=== PATIENT | female | born 2000 | race Caucasian/White ===

== ENCOUNTER 2022-10-20 10:33 | Outpatient (CLI) | payer OTHER, MEDICAID, SELFPAY ==
--- NOTE | 2022-10-20 10:47 | US_ITS ---
WS: [id number] ULTRASOUND OB COMPLETE TECHNIQUE: ultrasound. CLINICAL INFORMATION: UNSURE OF LMP COMPARISON: None. FINDINGS: Single interuterine gestation is identified with vertex presentation. Placenta is fundal. Placenta grade 0. Normal amniotic fluid volume. cardiac activity: 164 BPM. AGA: 18w3d NILTON by ultrasound: 03/20/2023 Estimated weight: 254 g; 0 lbs. 9 oz. BDP: 4.0 cm = 18w1d HC: 16.1 cm = 18w6d AC: 13.2 cm = 18w5d FEMUR LENGTH: 2.9 cm = 18w5d US/US OB >= 14 weeks fetus [id number] IMPRESSION: 1. Single intrauterine with visualized cardiac activity. AGA 18w3d w ith NILTON 03/20/2023. 2. Placenta is fundal. No evidence of abruption or previa. 3. Normal amniotic fluid volume.
== END 2022-10-20 10:34 | disposition home or self-care (01) ==
LOC: RAD 10:42
PROVIDERS: PCP Nurse Practitioner; Visit Provider Family Medicine
DX: Z36.87 Encounter for antenatal screening for uncertain dates (principal); Z3A.18 18 weeks gestation of pregnancy
CPT/HCPCS: 76805

== ENCOUNTER 2023-03-02 14:13 | Outpatient (CLI) | payer OTHER, MEDICAID, SELFPAY ==
[2023-03-02] VITALS (12 sets, daily range): BP systolic 106–141; BP diastolic 60–90; PULSE 65–92; TEMP 36.1; BMI 38.9
[2023-03-02 15:34] LABS: Add Urine Microscopic? NO; Charge for UA Resulting for Rev
[2023-03-02 15:42] LABS: Bilirubin Urine Neg (Negative); Blood Urine Neg (Negative); Glucose Urine UA Norm (Normal); Ketones Urine Negative (Negative); Leukocyte Esterase Urine Negative (Negative); Nitrate Urine Negative (Negative); Protein Urine Neg (Negative); Urine Appearance Clear (CLEAR); Urine Color Yellow (Yellow); Urobilinogen Urine Norm (Negative); pH Urine 7 (5-7)
[2023-03-02 15:43] LABS: Basophils % 0.3 %; Eosinophils # 0.1 10^3/uL (0.0-0.8); Eosinophils % 0.7 %; Hematocrit 37.2 % (37.0-47.0); Hemoglobin 12.1 g/dL (11.5-15.3); Lymphocytes # 2.2 10^3/uL (0.8-4.8); Lymphocytes % 15.4 %; Mean Corpuscular HGB Conc 32.5 g/dL (30.0-36.0); Mean Corpuscular Hemoglobin 28.3 pg (28.0-34.0); Mean Corpuscular Volume 86.9 fl (81-99); Mean Platelet Volume 11.9 fL (7.4-10.4); Monocytes # 0.8 10^3/uL (0.2-0.9); Monocytes % 5.8 %; Neutrophils # 10.81 10^3/uL (1.8-7.7); Neutrophils % 76.2 %; Nucleated Red Blood Cells % 0 %; Platelet Count 272 10^3/cmm (130-400); Red Blood Count 4.28 10^6/uL (4.1-5.3); Red Cell Distribution Width 13.5 % (12.1-15.1); White Blood Count 14.2 10^3/uL (4.0-10.0)
[2023-03-02 16:03] LABS: Alanine Aminotransferase 87 U/L (0-33); Albumin Level 3.7 g/dL (3.5-5.2); Alkaline Phosphatase 159 U/L (35-105); Anion Gap 18.1 (5-19); Aspartate Amino Transferase 44 U/L (0-32); Blood Urea Nitrogen 10 mg/dL (6-20); Calcium 9.7 mg/dL (8.5-10.5); Carbon Dioxide 19 mmol/L (22-29); Chloride 104 mmol/L (98-107); Globulin 3.4 g/dL (1.3-4.6); Glomerular Filtration Rate 152.9 mL/min (90-130); Glucose 76 mg/dL (65-115); Osmolality Calculated 282 mOsm/kg (285-295); Potassium 4.1 mmol/L (3.5-5.1); Sodium 137 mmol/L (136-145); Total Bilirubin 0.3 mg/dL (0.15-1.2); Total Protein 7.1 g/dL (6.6-8.7); Uric Acid 4.1 mg/dL (2.4-5.7)
[2023-03-02 16:44] LABS: Urine Creatinine 82 mg/dL (28-217); Urine Protein Random 9 mg/dL
[2023-03-02 16:47] LABS: UPRO/UCREAT Ratio 0.11 mg/mg CR
== END 2023-03-02 17:05 | disposition home or self-care (01) ==
LOC: OPOB 14:13 → OBGYN 14:15
PROVIDERS: PCP Nurse Practitioner; Visit Provider Family Medicine
DX: O16.9 Unspecified maternal hypertension, unspecified trimester (principal); Z3A.00 Weeks of gestation of pregnancy not specified
CPT/HCPCS: 36415; 59025; 80053; 81003; 82570; 84156; 84550; 85025; 99211

== ENCOUNTER 2023-03-10 07:46 | Inpatient (IN) | payer OTHER, MEDICAID, SELFPAY ==
[2023-03-09] VITALS (29 sets, daily range): BP systolic 128–179; BP diastolic 76–91; PULSE 65–113; TEMP 37.1; O2SAT 97–98; BMI 39.4
[2023-03-09 17:42] LABS: Basophils % 0.2 %; Eosinophils # 0.1 10^3/uL (0.0-0.8); Eosinophils % 0.4 %; Hematocrit 34.8 % (37.0-47.0); Hemoglobin 11.6 g/dL (11.5-15.3); Lymphocytes % 13.3 %; Mean Corpuscular HGB Conc 33.3 g/dL (30.0-36.0); Mean Corpuscular Hemoglobin 29.1 pg (28.0-34.0); Mean Corpuscular Volume 87.2 fl (81-99); Mean Platelet Volume 11.9 fL (7.4-10.4); Monocytes # 0.7 10^3/uL (0.2-0.9); Monocytes % 4.5 %; Neutrophils # 11.95 10^3/uL (1.8-7.7); Neutrophils % 80.8 %; Nucleated Red Blood Cells % 0 %; Platelet Count 253 10^3/cmm (130-400); Red Blood Count 3.99 10^6/uL (4.1-5.3); Red Cell Distribution Width 13.8 % (12.1-15.1); White Blood Count 14.8 10^3/uL (4.0-10.0)
[2023-03-09 17:52] LABS: Alanine Aminotransferase 113 U/L (0-33); Albumin Level 3.7 g/dL (3.5-5.2); Alkaline Phosphatase 143 U/L (35-105); Blood Urea Nitrogen 13 mg/dL (6-20); Calcium 9.5 mg/dL (8.5-10.5); Carbon Dioxide 19 mmol/L (22-29); Chloride 104 mmol/L (98-107); Globulin 3.1 g/dL (1.3-4.6); Glomerular Filtration Rate 103.7 mL/min (90-130); Glucose 106 mg/dL (65-115); Osmolality Calculated 283 mOsm/kg (285-295); Sodium 136 mmol/L (136-145); Total Bilirubin 0.2 mg/dL (0.15-1.2); Total Protein 6.8 g/dL (6.6-8.7)
[2023-03-09 18:00] LABS: Urine Creatinine 102 mg/dL (28-217); Urine Protein Random 9 mg/dL
[2023-03-09 18:03] LABS: Anion Gap 16.9 (5-19); Aspartate Amino Transferase 61 U/L (0-32); Potassium 3.9 mmol/L (3.5-5.1)
[2023-03-09 18:04] LABS: UPRO/UCREAT Ratio 0.09 mg/mg CR
[2023-03-09] MEDS: miSOPROStol 100 mcg tablet 25 MCG VAGINAL (20:13)
[2023-03-10] VITALS (110 sets, daily range): BP systolic 119–186; BP diastolic 60–111; PULSE 59–100; RESP 15–18; TEMP 36.6–36.9; O2SAT 94–98
[2023-03-10] MEDS: lactated ringers 1,000 ML 999 ML IV ×2 (00:30→07:46)
[2023-03-10] MEDS: miSOPROStol 100 mcg tablet 25 MCG VAGINAL (01:29)
--- NOTE | 2023-03-10 01:45 | ANES.PREANE2 ---
Pre-Anesthetic Assessment Height/Weight: Height 1.77 m Weight 122.924 kg Temp Pulse BP Pulse Ox O2 Del Method 98.8 F 73 131/85 98 Room Air 03/09/23 23:31 03/10/23 01:42 03/10/23 01:42 03/10/23 00:26 03/09/23 19:15 Preop Diagnosis: IUP labor epidural Familial anesthetic complications: None Was Beta Grant taken within 24 hours: N/A Was Clonidine taken within 24 hours: N/A Social No alcohol and No tobacco Exam alert and oriented x 3 Airway Submandibular: within normal limits Cervical ROM: within normal limits Mallampati: Class III Dentition: full History/ROS No significant history except as noted Pulmonary None reported CV/HEM Hypertension gestational htn None reported Hepatic None reported GI Gastroesophageal Reflux Disease Metabolic Morbid Obesity [facility] None reported Neuropsych None reported Anesthetic Plan ASA status: 3 Anesthesia: Anesthesia Evaluation and Eval. for regional block Risk of > 500 ml blood loss (7ml/kg in children): No Medications/Allergies Home Medications Medication Instructions Recorded Confirmed Last Taken Type norethindrone acetate 1.5 1 tab PO DAILY #63 tabs 06/08/22 06/08/22 Unknown Rx mg-ethinyl estradiol 30 mcg tablet (Junel) prenat.vits,tammie,[id number] 1 tab PO DAILY 06/08/22 03/02/23 03/09/23 11:00 History famotidine 03/02/23 03/09/23 11:00 History Allergies Allergy/AdvReac Type Severity Reaction Status Date / Time No Known Allergies Allergy Verified 03/09/23 20:07 Current Medications Generic Name Dose Route Start Last Admin Trade Name Freq PRN Reason Stop Dose Admin Lactated Ringer's 1,000 mls @ 999 mls/hr 03/09/23 19:13 03/10/23 00:30 Lactated Ringers IV 999 mls/hr .Q1H1M PRN Administration Per L&D Rescitation Protocol Misoprostol 25 mcg 03/09/23 19:15 03/10/23 01:29 Misoprostol 100 Mcg Tablet VAGINAL 03/10/23 03:16 25 mcg Q4H MARINO Administration PFSH Anesthesia Family History (Updated 06/08/22 @ 09:17 by Yanni Henry LPN) Mother Hypertension Grandmother Hypertension Cancer paternal Father Multiple sclerosis Grandfather Diabetes Social History (Updated 06/08/22 @ 09:18 by Yanni Henry LPN) Smoking and tobacco status: never smoked Alcohol intake: never Substance/Drug Use: never Adopted: No Caregiver/support person: No Lives independently: No Marital status: Single service: No Current occupational status: unemployed Sexually active: Yes Do you think of yourself as: Straight/Heterosexual Current gender identity: Female Female Reproductive History : 1 Data Anesthesia 03/09/23 17:20 03/09/23 17:20 Short CBC 03/09/23 Range/Units 17:20 WBC 14.8 H (4.0-10.0) 10^3/uL Hgb 11.6 (11.5-15.3) g/dL Hct 34.8 L (37.0-47.0) % MCV 87.2 (81-99) fl Plt Count 253 (130-400) 10^3/cmm Neut % (Auto) 80.8 % Neut # (Auto) 11.95 H (1.8-7.7) 10^3/uL BMP 03/09/23 17:20 Sodium 136 Potassium 3.9 Chloride 104 Carbon Dioxide 19 L BUN 13 Creatinine 0.7 Glucose 106 Calcium 9.5 Liver Function 03/09/23 Range/Units 17:20 Total Bilirubin 0.2 (0.15-1.2) mg/dL AST 61 H (0-32) U/L ALT 113 H (0-33) U/L Alkaline Phosphatase 143 H (35-105) U/L Albumin 3.7 (3.5-5.2) g/dL Cardiac Studies: No Data to Display
[2023-03-10] MEDS: fentaNYL 50 mcg/mL INJ 2mL IVP (06:42)
[2023-03-10] MEDS: miSOPROStol 100 mcg tablet 25 MCG SUBLINGUAL (07:46)
--- NOTE | 2023-03-10 09:32 | ANES.PREANE2 ---
Pre-Anesthetic Assessment Height/Weight: Height 1.77 m Weight 122.924 kg Temp Pulse Resp BP Pulse Ox O2 Del Method 97.9 F 67 18 154/92 98 Room Air 03/10/23 05:40 03/10/23 09:26 03/10/23 06:42 03/10/23 09:26 03/10/23 04:08 03/09/23 19:15 Preop Diagnosis: IUP Familial anesthetic complications: none Was Beta Grant taken within 24 hours: N/A Was Clonidine taken within 24 hours: N/A Social No alcohol and No tobacco Exam alert, oriented x 3, clear to auscultation bilaterally and regular rate & rhythm Airway Submandibular: within normal limits Cervical ROM: within normal limits Mallampati: Class II Dentition: full Metabolic Morbid Obesity Anesthetic Plan ASA status: 3 Anesthesia: Regional (specify below) (Labor epidural) Medications/Allergies Home Medications Medication Instructions Recorded Confirmed Last Taken Type norethindrone acetate 1.5 1 tab PO DAILY #63 tabs 06/08/22 06/08/22 Unknown Rx mg-ethinyl estradiol 30 mcg tablet (Junel) prenat.vits,tammie,ejr-awkm-[id number] 1 tab PO DAILY 06/08/22 03/02/23 03/09/23 11:00 History famotidine 03/02/23 03/09/23 11:00 History Allergies Allergy/AdvReac Type Severity Reaction Status Date / Time No Known Allergies Allergy Verified 03/09/23 20:07 Current Medications Generic Name Dose Route Start Last Admin Trade Name Freq PRN Reason Stop Dose Admin Fentanyl 25 - 100 mcg 03/09/23 19:13 03/10/23 06:42 Fentanyl 50 Mcg/Ml Inj 2ml IVP 100 mcg Q1H PRN Administration SEVERE PAIN Dextrose/Lactated Ringer's 1,000 mls @ 125 mls/hr 03/09/23 19:15 03/10/23 06:30 Dextrose 5%-Lactated Ringers IV Not Given .Q8H MARINO Lactated Ringer's 1,000 mls @ 999 mls/hr 03/09/23 19:13 03/10/23 02:15 Lactated Ringers IV 0 mls/hr .Q1H1M PRN Infusion Per L&D Rescitation Protocol Lactated Ringer's 1,000 mls @ 999 mls/hr 03/10/23 07:39 03/10/23 07:46 Lactated Ringers IV 999 mls/hr .Q1H1M PRN Administration See label comments PFSH Anesthesia Family History (Updated 06/08/22 @ 09:17 by Yanni Henry LPN) Mother Hypertension Grandmother Hypertension Cancer paternal Father Multiple sclerosis Grandfather Diabetes Social History (Updated 06/08/22 @ 09:18 by Yanni Henry LPN) Smoking and tobacco status: never smoked Alcohol intake: never Substance/Drug Use: never Adopted: No Caregiver/support person: No Lives independently: No Marital status: Single service: No Current occupational status: unemployed Sexually active: Yes Do you think of yourself as: Straight/Heterosexual Current gender identity: Female Female Reproductive History : 1 Data Anesthesia 03/09/23 17:20 03/09/23 17:20 Short CBC 03/09/23 Range/Units 17:20 WBC 14.8 H (4.0-10.0) 10^3/uL Hgb 11.6 (11.5-15.3) g/dL Hct 34.8 L (37.0-47.0) % MCV 87.2 (81-99) fl Plt Count 253 (130-400) 10^3/cmm Neut % (Auto) 80.8 % Neut # (Auto) 11.95 H (1.8-7.7) 10^3/uL BMP 03/09/23 17:20 Sodium 136 Potassium 3.9 Chloride 104 Carbon Dioxide 19 L BUN 13 Creatinine 0.7 Glucose 106 Calcium 9.5 Liver Function 03/09/23 Range/Units 17:20 Total Bilirubin 0.2 (0.15-1.2) mg/dL AST 61 H (0-32) U/L ALT 113 H (0-33) U/L Alkaline Phosphatase 143 H (35-105) U/L Albumin 3.7 (3.5-5.2) g/dL Cardiac Studies: No Data to Display Anesthesia Procedures Epidural Time Out Performed: Yes Consents Signed: Procedure Consent Consent: requested by attending/covering physician, from patient, risks and benefits reviewed and patient agrees to proceed Lumbar Level: L3-L4 Epidural position: sitting Epidural procedure: sterile prep of area, 1% lidocaine to numb the area, 18 g needle, neg for paresthesia, test dose given, 1.5% xylocaine 1:200k epi, 0.2% Ropivacaine bolus ml (5), placed PCEA, no systemic response, sterile dressing applied and 0.2% Ropiavacaine @ mls/hr (10) Additional Comments: GEOVANNA at 9cm, cath at 14cm
[2023-03-10] MEDS: ondansetron 2 mg/ML SDV 2 mL 4 MG IVP ×2 (09:36→16:16)
--- NOTE | 2023-03-10 20:14 | P.PCNOB_ITS ---
Delivery Note: Date of delivery: March 10, 2023 Pre-delivery diagnoses: 22-year-old 1 at 38 weeks and 4 days estimated gestational age presenting to the hospital with gestational hypertension. Post-delivery diagnoses: Status post spontaneous vaginal delivery Procedure: Spontaneous vaginal delivery Delivering Physician: Farshad Garcia Estimated blood loss (mL): 150 Pre-Delivery Course: The patient presented to the hospital due to elevated blood pressure. After arriving at the hospital she had multiple elevated blood pressures as well. She also had a couple of blood pressures that were in the severe range but resolved when we reduce her stress, and had her lay down. Because of her blood pressures and her gestational age, the decision was made to induce the patient. She was placed on Cytotec 25 mcg x 3. An amniotomy was performed. Her contractions spaced out and Pitocin was also initiated. She then progressed to complete without difficulty. Delivery: DELIVERY: The patient progressed to complete without difficulty. She delivered a male with a weight of 6 pounds 15 ounces with Apgars of 8, 9. The baby was delivered from the ROSS position and placed on the mother's abdomen. The cord was then clamped and cut. There was a nuchal cord x2 which was reduced prior to delivery.. There was no meconium. The placenta and 3 vessel cord were delivere d intact shortly thereafter. The perineum and vaginal vault were carefully examined. Minimal proficient vaginal lacerations were noted. Both the mother and the baby were in stable condition. Post-Delivery Status: Good A&P Assessment and plan (1) 38 weeks gestation of : I anticipate routine care (2) Spontaneous vaginal delivery: (3) Gestational hypertension: Coding Level of Care Code Acute Code for Chg Fwd Diagnoses 38 weeks gestation of Z3A.38 Spontaneous vaginal delivery O80 Gestational hypertension O13.9
--- NOTE | 2023-03-10 20:18 | PM.OPHPUD ---
Labor & Delivery H&P Update Date of Procedure: March 10, 2023 Date H&P Performed: 03/09/23 Admission Diagnosis: 22-year-old at 38 weeks estimated gestational age presenting to the hospital with gestational hypertension Preop diagnosis: IUP Primary indication for procedure: Gestational hypertension at 38 weeks estimated gestational age Planned procedure: Vaginal delivery Other information: The patient is a 22-year-old female who has had a relatively unremarkable . Over the last week she was noted to have some intermittent elevated blood pressures. In the office on the day of admission she was noted to have elevated blood pressures on multiple occasions. As result she was sent to the hospital for further evaluation. She had a preeclamptic work-up done which did demonstrate some elevated liver enzymes but otherwise was within normal limits. Her blood pressures that did not maintain elevated and even had a few severe elevated blood pressures as well. As result the decision was made to proceed with an induction. Her blood type was a positive. Her antibody screen was negative. She is rubella immune. The remainder of her infectious disease profile was within normal limits. Her drug screen was negative. Related Problem List Diagnoses (1) Gestational hypertension: (2) 38 weeks gestation of : A&P Assessment and plan (1) Gestational hypertension: We will continue to monitor the patient for signs of preeclampsia or for severe gestational hypertension. We will consider magnesium as needed. We will also treat her blood pressure with medication as needed. Status: Acute (2) 38 weeks gestation of : Status: Acute
[2023-03-10] MEDS: ibuprofen 800 mg tablet PO (22:20)
[2023-03-11] VITALS (7 sets, daily range): BP systolic 118–149; BP diastolic 72–87; PULSE 70–83; RESP 15–16; TEMP 36.4–36.7; O2SAT 97–100
[2023-03-11] MEDS: lanolin oint 7 gm 1 APPLIC TOPICAL (01:16)
[2023-03-11] MEDS: benzocaine-menthol 78 gm Canister 1 SPRAY TOPICAL (01:16)
--- NOTE | 2023-03-11 08:26 | PM.OBGYDC ---
Discharge Providers SECURITY AGENT Date of Admission: 03/10/23 07:46 Date of Discharge: 03/11/23 Attending Provider at Admission: Farshad Garcia MD Attending Provider at Discharge: Farshad Garcia MD Primary Care Provider: PAUL Husain Diagnoses at Discharge Discharge Diagnosis (1) 38 weeks gestation of : Status: Acute (2) Spontaneous vaginal delivery: Status: Acute (3) Gestational hypertension: Status: Acute Reason for Visit Reason for Visit: elevated bp Hospital Course Hospital Course The patient presented to the hospital for induction due to gestational hypertension. She did have some intermittent severe blood pressures that appear to be associate with anxiety. As we allowed her to lay down and take further blood pressures her blood pressures did calm down and because some became normal range. She was induced with Cytotec, an amniotomy, later augmented with Pitocin. The delivery of her male infant was unremarkable. There were no complications. Her bleeding was within normal limits. She breast-fed well. Her pain was well controlled. She had no significant lacerations. Information Peripartum Data: Delivery Method: Vaginal Physical Exam Narrative: The patient is alert. She appears comfortable. Her heart has a regular rate and rhythm with no murmurs appreciated. Lungs are clear to auscultation bilaterally. Her fundus is firm and below the umbilicus. Urinary Catheter Management: Mott: Cath Placed During This Visit: yes, but has since been removed by the nurse Reason for Continuing Indwelling Catheter: Decision to DC Catheter Urinary Catheter Date of Insertion: 03/10/23 Urinary Catheter Time of Insertion: 10:30 Date Urinary Catheter Removed: 03/10/23 Time Urinary Catheter Discontinued: 19:19 Discharge Data Studies Completed and Pending Pending at discharge Category Date Time Status Hemagram Timed Lab 03/11/23 06:29 Ordered Laboratory Results WBC 14.8 10^3/uL (4.0-10.0) H 03/09/23 17:20 RBC 3.99 10^6/uL (4.1-5.3) L 03/09/23 17:20 Hgb 11.6 g/dL (11.5-15.3) 03/09/23 17:20 Hct 34.8 % (37.0-47.0) L 03/09/23 17:20 MCV 87.2 fl (81-99) 03/09/23 17:20 MCH 29.1 pg (28.0-34.0) 03/09/23 17:20 MCHC 33.3 g/dL (30.0-36.0) 03/09/23 17:20 RDW 13.8 % (12.1-15.1) 03/09/23 17:20 Plt Count 253 10^3/cmm (130-400) 03/09/23 17:20 MPV 11.9 fL (7.4-10.4) H 03/09/23 17:20 Neut % (Auto) 80.8 % 03/09/23 17:20 Lymph % (Auto) 13.3 % 03/09/23 17:20 Mccormick % (Auto) 4.5 % 03/09/23 17:20 Eos % (Auto) 0.4 % 03/09/23 17:20 Baso % (Auto) 0.2 % 03/09/23 17:20 Neut # (Auto) 11.95 10^3/uL (1.8-7.7) H 03/09/23 17:20 Lymph # (Auto) 2.0 10^3/uL (0.8-4.8) 03/09/23 17:20 Mccormick # (Auto) 0.7 10^3/uL (0.2-0.9) 03/09/23 17:20 Eos # (Auto) 0.1 10^3/uL (0.0-0.8) 03/09/23 17:20 Baso # (Auto) 0.0 10^3/uL (0.0-0.1) 03/09/23 17:20 Nucleated RBC % (auto) 0 % 03/09/23 17:20 Nucleated RBCs # 0.0 /100WBC 03/09/23 17:20 Sodium 136 mmol/L (136-145) 03/09/23 17:20 Potassium 3.9 mmol/L (3.5-5.1) 03/09/23 17:20 Chloride 104 mmol/L (98-107) 03/09/23 17:20 Carbon Dioxide 19 mmol/L (22-29) L 03/09/23 17:20 Anion Gap 16.9 (5-19) 03/09/23 17:20 BUN 13 mg/dL (6-20) 03/09/23 17:20 Creatinine 0.7 mg/dL (0.5-0.9) 03/09/23 17:20 GFR Calculation 103.7 mL/min (90-130) 03/09/23 17:20 Glucose 106 mg/dL (65-115) 03/09/23 17:20 Calculated Osmolality 283 mOsm/kg (285-295) L 03/09/23 17:20 Uric Acid 5.0 mg/dL (2.4-5.7) 03/09/23 17:20 Calcium 9.5 mg/dL (8.5-10.5) 03/09/23 17:20 Total Bilirubin 0.2 mg/dL (0.15-1.2) 03/09/23 17:20 AST 61 U/L (0-32) H 03/09/23 17:20 ALT 113 U/L (0-33) H 03/09/23 17:20 Alkaline Phosphatase 143 U/L (35-105) H 03/09/23 17:20 Total Protein 6.8 g/dL (6.6-8.7) 03/09/23 17:20 Albumin 3.7 g/dL (3.5-5.2) 03/09/23 17:20 Globulin 3.1 g/dL (1.3-4.6) 03/09/23 17:20 U Random Total Protein 9 mg/dL 03/09/23 17:10 Urine Creatinine 102 mg/dL (28-217) 03/09/23 17:10 Protein/Creatinin Ratio 0.09 mg/mg CR 03/09/23 17:10 Vitals Last Vital Signs Temp 98.1 F 03/11/23 02:34 Pulse 70 03/11/23 06:29 Resp 15 03/11/23 04:13 BP 144/87 03/11/23 06:29 Pulse Ox 98 03/11/23 04:13 O2 Del Method Room Air 03/11/23 04:13 Discharge Plan Discharge Patient Disposition: Home Condition: Stable Prescriptions: New ibuprofen 800 mg Tablet 800 mg PO TID Qty: 45 0RF Continued prenat.vits,atmmie,hbt-sxte-qkjqc Tablet 1 tab PO DAILY Discontinued norethindrone ac-eth estradiol [ (21)] 1.5-30 mg-mcg tablet 1 tab PO DAILY Qty: 63 3RF famotidine Discharge Orders: Discharge Order (Routine); Ordered 03/11/23 Ordered By: Farshad Garcia Discharge Diet: Usual diet Discharge Activity: Limit activity as instructed Patient Instructions: Opioid Safety Discharge Attestations SECURITY AGENT Time Spent in Discharge Care*: less than 30 min Coding Level of Care Code Acute Code for Chg Fwd Diagnoses 38 weeks gestation of Z3A.38 Spontaneous vaginal delivery O80 Gestational hypertension O13.9
[2023-03-11] MEDS: docusate sodium 100 mg Capsule PO ×2 (11:02→17:09)
[2023-03-11] MEDS: prenatal vitamin Capsule 1 CAP PO (11:02)
[2023-03-11] MEDS: ibuprofen 800 mg tablet PO ×3 (11:02→20:37)
[2023-03-11 12:54] LABS: Hematocrit 31.9 % (37.0-47.0); Hemoglobin 10.3 g/dL (11.5-15.3); Mean Corpuscular HGB Conc 32.3 g/dL (30.0-36.0); Mean Corpuscular Hemoglobin 28.7 pg (28.0-34.0); Mean Corpuscular Volume 88.9 fl (81-99); Mean Platelet Volume 12.4 fL (7.4-10.4); Platelet Count 206 10^3/cmm (130-400); Red Blood Count 3.59 10^6/uL (4.1-5.3); White Blood Count 16.3 10^3/uL (4.0-10.0)
--- NOTE | 2023-03-11 15:52 | ANE.PACU2 ---
Inpatient post-anesthesia follow up: Airway intact: Yes Vital signs: Temperature 97.6 F Pulse Rate 80 Respiratory Rate 16 Blood Pressure 118/72 Pulse Oximetry 98 Oxygen Delivery Me thod Room Air Oxygen Flow Rate Fraction of Inspir ed Oxygen Hydration adequate: Yes Nausea and vomiting: No Pain level: 2 Mental status: Baseline
== END 2023-03-11 22:24 | disposition home or self-care (01) | DRG 807 ==
LOC: OPOB 07:47 → OBGYN 07:47
PROVIDERS: Admitting Provider Family Medicine; PCP Nurse Practitioner; Visit Provider Family Medicine
DX: O13.4 Gestational [pregnancy-induced] hypertension without significant proteinuria, complicating childbirth (principal); Z37.0 Single live birth; Z3A.38 38 weeks gestation of pregnancy; O69.81X0 Labor and delivery complicated by cord around neck, without compression, not applicable or unspecified
CPT/HCPCS: 36415; 51702; 59025; 59409; 80053; 82570; 84156; 84550; 85025; 85027; 96374; 96376; 99211; J2405; J2795; J3010; J7040; J7120

== ENCOUNTER 2023-08-31 13:49 | Inpatient (IN) | payer OTHER, MEDICAID, SELFPAY ==
[2023-08-31] VITALS (8 sets, daily range): BP systolic 147–190; BP diastolic 84–112; PULSE 61–90; RESP 18–21; TEMP 36.8–37.2; O2SAT 96–100; BMI 39.9
[2023-08-31 14:20] LABS: Basophils % 0.2 %; Eosinophils % 0.1 %; Hematocrit 42.3 % (36-47); Lymphocytes % 6.8 %; Mean Corpuscular HGB Conc 32.2 g/dL (30-55); Mean Corpuscular Volume 84.1 fl (85-98); Mean Platelet Volume 10.1 fL (7.4-10.4); Monocytes # 0.4 10^3/uL (0.2-0.9); Neutrophils # 12.72 10^3/uL (1.8-7.7); Neutrophils % 89.4 %; Nucleated Red Blood Cells % 0 %; Platelet Count 316 10^3/cmm (157-399); Red Blood Count 5.03 10^6/uL (3.85-5.65); Red Cell Distribution Width 13.9 % (12.1-15.1); White Blood Count 14.22 10^3/uL (3.29-11.43)
[2023-08-31 14:32] LABS: HCG, Serum Qual Negative (Negative)
[2023-08-31 14:36] LABS: Alanine Aminotransferase 175 U/L (0-33); Albumin Level 4.5 g/dL (3.5-5.2); Alkaline Phosphatase 142 U/L (35-105); Anion Gap 17.2 (5-19); Aspartate Amino Transferase 224 U/L (0-32); Blood Urea Nitrogen 11 mg/dL (6-20); Calcium 9.6 mg/dL (8.5-10.5); Carbon Dioxide 23 mmol/L (22-29); Chloride 101 mmol/L (98-107); Globulin 3.5 g/dL (1.3-4.6); Glomerular Filtration Rate 102.8 mL/min (90-130); Glucose 132 mg/dL (65-115); Lipase 31 U/L (13-60); Osmolality Calculated 285 mOsm/kg (285-295); Potassium 4.2 mmol/L (3.5-5.1); Sodium 137 mmol/L (136-145); Total Bilirubin 1.2 mg/dL (0.15-1.2)
--- NOTE | 2023-08-31 15:22 | USR_ITS ---
PROCEDURE INFORMATION: Exam: US Abdomen; Limited Exam date and time: 08/31/2023 3:43 PM Age: 23 years old Clinical indication: Abdominal pain; Localized; Right upper quadrant (ruq); Additional info: Ruq pain, grabbed PT from er waiting at 1542. -bm TECHNIQUE: Imaging protocol: Real time ultrasound of the abdomen with image documentation. Limited exam focused on the region of clinical interest. COMPARISON: [place] [id number] 12/12/2022 11:59 AM FINDINGS: Liver: The liver is normal. Gallbladder: Slightly thickened gallbladder wall at 4 mm. No gallstones. Biliary ducts: Mildly dilated common duct, 7 mm. Right kidney: The right kidney is normal. US/US gall bladder [id number] IMPRESSION: Slightly thickened gallbladder wall with a mildly dilated common duct. No evidence of stones however.
[2023-08-31 17:31] LABS: Add Urine Microscopic? NO; Charge for UA Resulting for Rev
--- NOTE | 2023-08-31 17:32 | CTR_ITS ---
PROCEDURE INFORMATION: Exam: CT Abdomen And Pelvis With Contrast Exam date and time: 08/31/2023 6:19 PM Age: 23 years old Clinical indication: Nausea and vomiting; Additional info: Elevated lfts, ruq pain, n/v, abnormal US TECHNIQUE: Imaging protocol: Computed tomography of the abdomen and pelvis with contrast. Radiation optimization: All CT scans at this facility use at least one of these dose optimization techniques: automated exposure control; mA and/or kV adjustment per patient size (includes targeted exams where dose is matched to clinical indication); or iterative reconstruction. Contrast material: OMNI 350; Contrast volume: 100 ml; Contrast route: INTRAVENOUS (IV); REPORTING DATA: Count of CT and Cardiac NM exams in prior 12 months: This patient has received 0 known CTs and 0 known cardiac nuclear medicine studies in the 12 months prior to the current study. COMPARISON: US gall bladder [id number] 08/31/2023 3:43 PM RADIATION DOSE METRICS: Total DLP (mGy-cm): 964 FINDINGS: Liver: No acute findings. Gallbladder and bile ducts: Intra and extrahepatic biliary ductal dilatation. Suspect punctate gallstone at the gallbladder neck. Pancreas: No ductal dilation. Spleen: No splenomegaly. Adrenal glands: No mass. Kidneys and ureters: No hydronephrosis. Stomach and bowel: No obstruction. Appendix: Normal appendix. Intraperitoneal space: No free air. No significant fluid collection. Vasculature: No abdominal aortic aneurysm. Lymph nodes: No enlarged lymph nodes. Urinary bladder: Incompletely distended. Reproductive: Unremarkable as visualized. Bones/joints: No acute findings. Soft tissues: Unremarkable. CT/CT abdomen pelvis w con* [id number] IMPRESSION: Biliary ductal dilatation of unclear etiology. MRCP recommended for further characterization.
--- NOTE | 2023-08-31 17:33 | ED_ITS ---
Documented by User: José Antonio Vick DO 08/31/23 17:34 HPI - Abdominal Pain 2 General: Chief Complaint: Abdominal Pain Stated Complaint: abd and back pain Time Seen by Provider: 08/31/23 15:21 History of Present Illness: Patient presents to the ER with complaints of right upper quadrant abdominal pain nausea vomiting. Severe pain started this morning along with nausea vomiting. Patient denies any bowel or bladder problems. Patient has had this before but it went away on its own patient also had elevated liver enzymes during her . Patient has not had any abdominal surgery. She still has her gallbladder. The pain is in the right upper quadrant and migrates around to the back. It is better in certain positions and worse in certain positions. Causes nausea and vomiting with the patient just does not want to eat when this flares up. Review of Systems 2 General: Reports: 10 or more systems reviewed and unremarkable except in HPI and below PFSH ED 2 PFSH: Family History Mother Hypertension Grandmother Hypertension Cancer paternal Father Multiple sclerosis Grandfather Diabetes Social History Smoking and tobacco/nicotine status: never used tobacco/nicotine Alcohol intake: never Substance/Drug Use: never Adopted: No Caregiver/support person: No Lives independently: No Marital status: Single service: No Current occupational status: unemployed Sexually active: Yes Do you think of yourself as: Straight/Heterosexual Current gender identity: Female Physical Exam 2 Const: COMMON NORMALS: no acute distress, average body habitus, patient oriented x3, no limitations, healthy appearing, alert and well nourished HENMT: COMMON NORMALS: normocephalic, atraumatic, hearing grossly normal bilaterally, external ears normal, Normal external nose present, moist oral mucous membranes and oropharynx normal HEAD & SCALP: normocephalic and atraumatic NOSE: Normal external nose present EXTERNAL EAR: Yes external ears normal Neck/C-Spine: COMMON NORMALS: full ROM, no lymphadenopathy, supple, no meningeal signs, no JVD and Thyroid normal THYROID: Thyroid normal Chest: COMMONS NORMALS: normal inspection of the chest and normal palpation of entire chest wall Resp: COMMON NORMALS: normal respiratory effort, No retractions, No use of accessory muscles and clear to auscultation bilaterally AUSCULTATION: clear to auscultation bilaterally Cardio: COMMON NORMALS: no JVD, regular rate, regular rhythm, S1 normal heart sound present, S2 normal heart sound present, No gallops present (Cardio), No clicks present (Cardio), No murmurs present (Cardio) and No rub (Cardio) R ATE: regular rate RHYTHM: regular rhythm HEART SOUNDS: S1 normal heart sound present and S2 normal heart sound present GI: COMMON NORMALS: Normal to inspection, nondistended, normoactive bowel sounds present, Soft to palpation and no masses; negative for non-tender (Tenderness to palpation of right upper quadrant) P ALPATION: Yes Soft to palpation Neuro: COMMON NORMALS: patient oriented x3 SENSORIUM/ORIENTATION: Yes alert MENINGEAL SIGNS: Yes no meningeal signs Course 2 Vital Signs: Vital signs: Vital Signs Temperature 99.0 F 09/01/23 00:00 Pulse Rate 79 09/01/23 00:00 Respiratory Rate 18 09/01/23 00:00 Blood Pressure 147/84 09/01/23 00:00 Pulse Oximetry 97 09/01/23 00:00 Oxygen Delivery Me thod Room Air 09/01/23 00:00 MDM - Abdominal Pain Differential Diagnosis Unlikely abdominal pain, acute appendicitis, calculus of kidney, constipation, diverticulitis, endometriosis, gastroenteritis, pancreatitis or small bowel obstruction Medical Records I reviewed the patient's medical records. Lab Data I reviewed the patient's lab results. 08/31/23 14:13 08/31/23 14:13 Labs/Radiology: Radiology Impressions Gallbladder Ultrasound 08/31/23 15:22 IMPRESSION: Slightly thickened gallbladder wall with a mildly dilated common duct. No evidence of stones however. Abdomen/Pelvis CT 08/31/23 17:32 IMPRESSION: Biliary ductal dilatation of unclear etiology. MRCP recommended for further characterization. Laboratory Results WBC 14.22 10^3/uL (3.29-11.43) H 08/31/23 14:13 RBC 5.03 10^6/uL (3.85-5.65) 08/31/23 14:13 Hgb 13.60 g/dL (11.27-16.99) 08/31/23 14:13 Hct 42.3 % (36-47) 08/31/23 14:13 MCV 84.1 fl (85-98) L 08/31/23 14:13 MCH 27.0 pg (27-33) 08/31/23 14:13 MCHC 32.2 g/dL (30-55) 08/31/23 14:13 RDW 13.9 % (12.1-15.1) 08/31/23 14:13 Plt Count 316 10^3/cmm (157-399) 08/31/23 14:13 MPV 10.1 fL (7.4-10.4) 08/31/23 14:13 Neut % (Auto) 89.4 % 08/31/23 14:13 Lymph % (Auto) 6.8 % 08/31/23 14:13 [place] % (Auto) 3.0 % 08/31/23 14:13 Eos % (Auto) 0.1 % 08/31/23 14:13 Baso % (Auto) 0.2 % 08/31/23 14:13 Neut # (Auto) 12.72 10^3/uL (1.8-7.7) H 08/31/23 14:13 Lymph # (Auto) 1.0 10^3/uL (0.8-4.8) 08/31/23 14:13 [place] # (Auto) 0.4 10^3/uL (0.2-0.9) 08/31/23 14:13 Eos # (Auto) 0.0 10^3/uL (0.0-0.8) 08/31/23 14:13 Baso # (Auto) 0.0 10^3/uL (0.0-0.1) 08/31/23 14:13 Nucleated RBC % (auto) 0 % 08/31/23 14:13 Nucleated RBCs # 0.0 /100WBC 08/31/23 14:13 Sodium 137 mmol/L (136-145) 08/31/23 14:13 Potassium 4.2 mmol/L (3.5-5.1) 08/31/23 14:13 Chloride 101 mmol/L (98-107) 08/31/23 14:13 Carbon Dioxide 23 mmol/L (22-29) 08/31/23 14:13 Anion Gap 17.2 (5-19) 08/31/23 14:13 BUN 11 mg/dL (6-20) 08/31/23 14:13 Creatinine 0.7 mg/dL (0.5-0.9) 08/31/23 14:13 GFR Calculation 102.8 mL/min (90-130) 08/31/23 14:13 Glucose 132 mg/dL (65-115) H 08/31/23 14:13 Calculated Osmolality 285 mOsm/kg (285-295) 08/31/23 14:13 Calcium 9.6 mg/dL (8.5-10.5) 08/31/23 14:13 Total Bilirubin 1.2 mg/dL (0.15-1.2) 08/31/23 14:13 AST 224 U/L (0-32) H 08/31/23 14:13 ALT 175 U/L (0-33) H 08/31/23 14:13 Alkaline Phosphatase 142 U/L (35-105) H 08/31/23 14:13 Total Protein 8.0 g/dL (6.6-8.7) 08/31/23 14:13 Albumin 4.5 g/dL (3.5-5.2) 08/31/23 14:13 Globulin 3.5 g/dL (1.3-4.6) 08/31/23 14:13 Lipase 31 U/L (13-60) 08/31/23 14:13 HCG, Qual Negative (Negative) 08/31/23 14:13 Urine Color [place] (Yellow) 08/31/23 17:10 Urine Appearance Clear (CLEAR) 08/31/23 17:10 Urine pH 8 (5-7) H 08/31/23 17:10 Ur Specific [place] 1.015 (1.005-1.030) 08/31/23 17:10 Urine Protein Neg (Negative) 08/31/23 17:10 Urine Glucose (UA) Norm (Normal) 08/31/23 17:10 Urine Ketones Negative (Negative) 08/31/23 17:10 Urine Blood Neg (Negative) 08/31/23 17:10 Urine Nitrate Negative (Negative) 08/31/23 17:10 Urine Bilirubin Neg (Negative) 08/31/23 17:10 Prot Sulfosalicylic Acd Negative (Negative) 08/31/23 17:10 Urine Urobilinogen Norm mg/dL (Negative) 08/31/23 17:10 Ur Leukocyte Esterase Negative (Negative) 08/31/23 17:10 All radiology interpretation(s) finalized by discharge Discharge Plan Discharge Patient Disposition: Admitted As Inpatient Admit Provider: Earl Vaz Clinical Impression: Abdominal pain, Acute calculous cholecystitis, Transaminitis Condition: Stable Coding Level of Care Code ED 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 Severe pain started this morning along with nausea vomiting . Patient denies any bowel or bladder problems. Patient has had this before but it went away on its own patient also had elevated liver enzymes during her . Patient has not had any abdominal surgery. She still has her gallbladder. The pain is in the right upper quadrant and migrates around to the back. It is better in certain positions and worse in certain positions. Causes nausea and vomiting with the patient just does not want to eat when this flares up. Associated Symptoms: Reports nausea and vomiting; Denies bloating, constipation, GI cramping and heartburn Review of Systems 2 GI: Reports: abdominal pain, nausea and vomiting; Denies: heartburn, early satiety, constipation, bloating or GI cramping PFSH ED 2 PFSH: Family History Mother Hypertension Grandmother Hypertension Cancer paternal Father Multiple sclerosis Grandfather Diabetes Social History Smoking and tobacco/nicotine status: never used tobacco/nicotine Alcohol intake: never Substance/Drug Use: never Adopted: No Caregiver/support person: No Lives independently: No Marital status: Single service: No Current occupational status: unemployed Sexually active: Yes Do you think of yourself as: Straight/Heterosexual Current gender identity: Female Course 2 ED course: Took over care at this [address] scan result. Patient was seen and evaluated by me and currently she is pain-free. Awaiting CT result at this time. At 6:35 PM I discussed patient with the on-call general surgery. Consultations: Consultation #1: Spoke with Dr. Vaz he agree with current treatment including chills of antibiotics. Will await CT findings to determine further disposition at this time. Consultation #2: At 9:51 PM discussed patient with Dr. Carpio at [facility]. He recommended consultation with general surgery at [facility] before transfer. The surgeon felt like patient should be admitted here and undergo cholecystectomy due to the fact that the gallstone is at the neck of the gallbladder. I called the on-call surgeon again and accept the patient for inpatient admission at this time. Vital Signs: Vital signs: Vital Signs Temperature 99.0 F 09/01/23 00:00 Pulse Rate 79 09/01/23 00:00 Respiratory Rate 18 09/01/23 00:00 Blood Pressure 147/84 09/01/23 00:00 Pulse Oximetry 97 09/01/23 00:00 Oxygen Delivery Me thod Room Air 09/01/23 00:00 MDM - Abdominal Pain Medical Decision Making Patient made comfortable emergency room and had extensive workup including CBC, CMP, lipase, CT scan and ultrasound. I discussed patient with the on-call general surgeon Differential Diagnosis Likely abdominal pain, acute appendicitis, calculus of kidney, constipation, diverticulitis, endometriosis, gastroenteritis, pancreatitis and small bowel obstruction Lab Data 08/31/23 14:13 08/31/23 14:13 Labs/Radiology: Radiology Impressions Gallbladder Ultrasound 08/31/23 15:22 IMPRESSION: Slightly thickened gallbladder wall with a mildly dilated common duct. No evidence of stones however. Abdomen/Pelvis CT 08/31/23 17:32 IMPRESSION: Biliary ductal dilatation of unclear etiology. MRCP recommended for further characterization. Laboratory Results WBC 14.22 10^3/uL (3.29-11.43) H 08/31/23 14:13 RBC 5.03 10^6/uL (3.85-5.65) 08/31/23 14:13 Hgb 13.60 g/dL (11.27-16.99) 08/31/23 14:13 Hct 42.3 % (36-47) 08/31/23 14:13 MCV 84.1 fl (85-98) L 08/31/23 14:13 MCH 27.0 pg (27-33) 08/31/23 14:13 MCHC 32.2 g/dL (30-55) 08/31/23 14:13 RDW 13.9 % (12.1-15.1) 08/31/23 14:13 Plt Count 316 10^3/cmm (157-399) 08/31/23 14:13 MPV 10.1 fL (7.4-10.4) 08/31/23 14:13 Neut % (Auto) 89.4 % 08/31/23 14:13 Lymph % (Auto) 6.8 % 08/31/23 14:13 [place] % (Auto) 3.0 % 08/31/23 14:13 Eos % (Auto) 0.1 % 08/31/23 14:13 Baso % (Auto) 0.2 % 08/31/23 14:13 Neut # (Auto) 12.72 10^3/uL (1.8-7.7) H 08/31/23 14:13 Lymph # (Auto) 1.0 10^3/uL (0.8-4.8) 08/31/23 14:13 [place] # (Auto) 0.4 10^3/uL (0.2-0.9) 08/31/23 14:13 Eos # (Auto) 0.0 10^3/uL (0.0-0.8) 08/31/23 14:13 Baso # (Auto) 0.0 10^3/uL (0.0-0.1) 08/31/23 14:13 Nucleated RBC % (auto) 0 % 08/31/23 14:13 Nucleated RBCs # 0.0 /100WBC 08/31/23 14:13 Sodium 137 mmol/L (136-145) 08/31/23 14:13 Potassium 4.2 mmol/L (3.5-5.1) 08/31/23 14:13 Chloride 101 mmol/L (98-107) 08/31/23 14:13 Carbon Dioxide 23 mmol/L (22-29) 08/31/23 14:13 Anion Gap 17.2 (5-19) 08/31/23 14:13 BUN 11 mg/dL (6-20) 08/31/23 14:13 Creatinine 0.7 mg/dL (0.5-0.9) 08/31/23 14:13 GFR Calculation 102.8 mL/min (90-130) 08/31/23 14:13 Glucose 132 mg/dL (65-115) H 08/31/23 14:13 Calculated Osmolality 285 mOsm/kg (285-295) 08/31/23 14:13 Calcium 9.6 mg/dL (8.5-10.5) 08/31/23 14:13 Total Bilirubin 1.2 mg/dL (0.15-1.2) 08/31/23 14:13 AST 224 U/L (0-32) H 08/31/23 14:13 ALT 175 U/L (0-33) H 08/31/23 14:13 Alkaline Phosphatase 142 U/L (35-105) H 08/31/23 14:13 Total Protein 8.0 g/dL (6.6-8.7) 08/31/23 14:13 Albumin 4.5 g/dL (3.5-5.2) 08/31/23 14:13 Globulin 3.5 g/dL (1.3-4.6) 08/31/23 14:13 Lipase 31 U/L (13-60) 08/31/23 14:13 HCG, Qual Negative (Negative) 08/31/23 14:13 Urine Color [place] (Yellow) 08/31/23 17:10 Urine Appearance Clear (CLEAR) 08/31/23 17:10 Urine pH 8 (5-7) H 08/31/23 17:10 Ur Specific [place] 1.015 (1.005-1.030) 08/31/23 17:10 Urine Protein Neg (Negative) 08/31/23 17:10 Urine Glucose (UA) Norm (Normal) 08/31/23 17:10 Urine Ketones Negative (Negative) 08/31/23 17:10 Urine Blood Neg (Negative) 08/31/23 17:10 Urine Nitrate Negative (Negative) 08/31/23 17:10 Urine Bilirubin Neg (Negative) 08/31/23 17:10 Prot Sulfosalicylic Acd Negative (Negative) 08/31/23 17:10 Urine Urobilinogen Norm mg/dL (Negative) 08/31/23 17:10 Ur Leukocyte Esterase Negative (Negative) 08/31/23 17:10 Discharge Plan Discharge Patient Disposition: Admitted As Inpatient Admit Provider: Earl Vaz Clinical Impression: Abdominal pain, Acute calculous cholecystitis, Transaminitis Condition: Stable Coding Level of Care Code 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
[2023-08-31] MEDS: ondansetron 2 mg/ML SDV 2 mL 4 MG IVP (17:39)
[2023-08-31] MEDS: ketorolac 30 mg/mL INJ IVP (17:39)
[2023-08-31 17:41] LABS: Bilirubin Urine Neg (Negative); Blood Urine Neg (Negative); Glucose Urine UA Norm (Normal); Ketones Urine Negative (Negative); Leukocyte Esterase Urine Negative (Negative); Nitrate Urine Negative (Negative); Protein Urine Neg (Negative); Specific Gravity, Urine 1.015 (1.005-1.030); Sulfosalicylic Acid Urine Negative (Negative); Urine Appearance Clear (CLEAR); Urine Color Amber (Yellow); Urobilinogen Urine Norm (Negative); pH Urine 8 (5-7)
[2023-08-31] MEDS: sodium chloride 0.9% 1,000 ML 999 ML IV (17:41)
[2023-08-31] MEDS: piperacillin-tazobactam 3.375 GM in sodium chloride 0.9% (plus) 50 ML IV (18:25)
[2023-08-31] MEDS: iohexol 350 mg/mL 500 mL Btl (per mL) IV (18:32)
--- NOTE | 2023-08-31 22:50 | PC.NURSE ---
Report called to RINA Craig on [place]. All questions and concerns addressed at time of report.
[2023-09-01] VITALS (7 sets, daily range): BP systolic 113–147; BP diastolic 70–84; PULSE 65–82; RESP 17–18; TEMP 36.6–37.2; O2SAT 96–98; BMI 39.9
[2023-09-01] MEDS: ketorolac 30 mg/mL INJ IVP ×4 (00:39→20:22)
[2023-09-01] MEDS: lactated ringers 1,000 ML 125 ML IV ×2 (00:40→08:20)
[2023-09-01] MEDS: piperacillin-tazobactam 3.375 GM in sodium chloride 0.9% (plus) 50 ML IV ×3 (02:52→19:53)
[2023-09-01 05:00] LABS: Basophils % 0.3 %; Eosinophils # 0.1 10^3/uL (0.0-0.8); Hematocrit 38.7 % (36-47); Lymphocytes % 18.9 %; Mean Corpuscular HGB Conc 32.3 g/dL (30-55); Mean Corpuscular Hemoglobin 27.3 pg (27-33); Mean Corpuscular Volume 84.5 fl (85-98); Mean Platelet Volume 10.7 fL (7.4-10.4); Monocytes # 0.9 10^3/uL (0.2-0.9); Monocytes % 8.6 %; Neutrophils # 7.41 10^3/uL (1.8-7.7); Neutrophils % 70.5 %; Nucleated Red Blood Cells % 0 %; Platelet Count 257 10^3/cmm (157-399); Red Blood Count 4.58 10^6/uL (3.85-5.65); Red Cell Distribution Width 14.2 % (12.1-15.1); White Blood Count 10.49 10^3/uL (3.29-11.43)
[2023-09-01 05:23] LABS: Alanine Aminotransferase 467 U/L (0-33); Albumin Level 3.7 g/dL (3.5-5.2); Alkaline Phosphatase 161 U/L (35-105); Anion Gap 17.4 (5-19); Aspartate Amino Transferase 352 U/L (0-32); Blood Urea Nitrogen 9 mg/dL (6-20); Calcium 8.7 mg/dL (8.5-10.5); Carbon Dioxide 21 mmol/L (22-29); Chloride 104 mmol/L (98-107); Globulin 3.1 g/dL (1.3-4.6); Glomerular Filtration Rate 102.8 mL/min (90-130); Glucose 97 mg/dL (65-115); Osmolality Calculated 287 mOsm/kg (285-295); Potassium 3.4 mmol/L (3.5-5.1); Sodium 139 mmol/L (136-145); Total Bilirubin 1.5 mg/dL (0.15-1.2); Total Protein 6.8 g/dL (6.6-8.7)
--- NOTE | 2023-09-01 06:58 | P.HP_ITS ---
Providers/Chief Complaint 2 Admitting Physician: Earl Vaz MD Primary Care Provider: PAUL Husain Chief Complaint: abd and back pain History of Present Illness Leilani Nagel is a 23 year old female who presented to the emergency room yesterday complaining of right upper quadrant abdominal pain. Patient has had several episodes over the last couple of weeks, this time the pain was intense and therefore she presented to the ED. According to the patient pain has started after she delivered her baby about [address] scan of the abdomen done in the ER showed evidence of intra and extrahepatic bile duct dilation, this is concerning for possible choledocholithiasis. Bilirubin was mildly elevated as well as LFTs, outside transfer was attempted without success. We can admit the patient for IV antibiotics and MRCP. This morning patient is doing much better abdominal exam is quite benign and not complaining of pain. Medications/Allergies Home Medications Medication Instructions Recorded Confirmed Last Taken Type prenat.vits,tammie,zcx-drwr-ettfg 1 tab PO DAILY 06/08/22 03/02/23 03/09/23 11:00 History ibuprofen 800 mg tablet 800 mg PO TID #45 tabs 03/11/23 Unknown Rx Allergies Allergy/AdvReac Type Severity Reaction Status Date / Time No Known Allergies Allergy Verified 08/31/23 14:30 PFSH Acute 2 PFSH: Family History Mother Hypertension Grandmother Hypertension Cancer paternal Father Multiple sclerosis Grandfather Diabetes Social History Smoking and tobacco/nicotine status: never used tobacco/nicotine Alcohol intake: never Substance/Drug Use: never Adopted: No Caregiver/support person: No Lives independently: No Marital status: Single service: No Current occupational status: unemployed Sexually active: Yes Do you think of yourself as: Straight/Heterosexual Current gender identity: Female Vitals/I&O/Wt Last Vital Signs Temp 98.4 F 09/01/23 04:00 Pulse 82 09/01/23 04:00 Resp 17 09/01/23 04:00 BP 130/84 09/01/23 04:00 Pulse Ox 96 09/01/23 04:00 O2 Del Method Room Air 09/01/23 04:00 08/31/23 08/31/23 09/01/23 14:59 22:59 06:59 Intake Total 1050 / 1050 Balance 1050 / 1050 Weight last 48 hrs Weight 270 lb Weight 270 lb Weight 270 lb Physical Exam 2 Narrative: General : Patient is well developed , no acute distress, oriented x3 Head : Normal cephalic, a-traumatic. Nose : Mucous membranes are without erythema. Lungs : Equal chest rise bilaterally, no use of accessory muscles, trachea is midline. CV : Rate and rhythm are normal. Abdomen : Soft, ND, NT, no g/r/m Extremities : No edema. Upper extremities are normal bilaterally. Back : non-tender to palpation, no CVA tenderness. Data 09/01/23 04:27 09/01/23 04:27 A&P Assessment and plan (1) Abdominal pain: (2) Transaminitis: (3) Choledocholithiasis: Plan After complete history, physical examination and review of all available clinical data the following is my assessment. Patient with possible choledocholithiasis. We will obtain MRCP today, if choledocholithiasis is verified we will proceed with transfer to higher level of care for ERCP. If no evidence of a stone blocking the duct we will continue antibiotic therapy advance diet and then will program a schedule elective cholecystectomy in about 6 weeks. Patient has been informed of the findings, she agrees with the plan. She will remain n.p.o. until we get the MRCP done. Attestations 2 Medical Necessity Statement*: Patient will require 24 to 48 hours of hospital stay for management of possible choledocholithiasis. Coding Level of Care Code 92805 Diagnoses Abdominal pain R10.9 Transaminitis R74.01 Choledocholithiasis K80.50
--- NOTE | 2023-09-01 09:05 | PC.CHAP ---
Pastoral Care Encounter/Spiritual Assessment Type of Contact [] Declined office manager executive assistant visit [] Patient/Family/Request visit [] Outpatient visit [] Follow-up visit [] Physician referral [] Code/Alert [x] Routine visit [] Staff referral [] Actively dying [] Patient sleeping [x] Family support [] [] Out of room [] Palliative care [] [] Receiving care in room [] Pre-surgical visit [] Trauma [] Long length of stay [] ICU visit [] Other: Relational/Emotional Strength [x] Patient feels connected with others/family/visitors/staff [] Distress [] Loneliness/isolation [] Abandonment Spirituality of Patient [x] Person of Melissa [] Attends Mosque of their Melissa [x] Believes in Prayer [] Reads Bible or Roman Catholic materials [] There are Spiritual issues to be addressed Continuous Improvement Consultant Interventions [x] Prayer [x] Active listening [] Non-anxious presence [x] Spiritual/emotional support [] Crisis/trauma care [] Spiritual counseling [] Bereavement support [] Provided bereavement packet [] Provided Bible/devotional materials [] Provided toy/stuffed animal, coloring book to patient or family member [] Provided Communion [] Anointing/[place] [] Salvation [x] Completed spiritual assessment [] Other: Impact on Illness or Injury [] Angry [] Fearful [] Anxious [] Often cries [] Exhaustion [] Unable to work [] Unable to attend yazidi [] Unable to walk/stand [] Unable to read [] Unable to drive [] Unable to eat/drink [] Unable to sleep [] Unable to be with family [] Patient intubated [] Other: Summary Time spent with patient 5 min
--- NOTE | 2023-09-01 09:30 | MR_ITS ---
WS: [id number] MRI/MRCP OF THE ABDOMEN WITHOUT GADOLINIUM ENHANCEMENT TECHNIQUE: Coronal T2 Fase BH, Axial T2 Fase BH, Axial T2 FS BH, Zxial 3D [place] BH, Axial DWI BH, 2D MRCP Radial BH, 3D MRCP (Resp), and Axial 3D Dyn BH Post sequences. CLINICAL INFORMATION: Choledocolithiasis COMPARISON: CT 08/31/2023 and ultrasound 08/31/2023 FINDINGS: Hepatomegaly. Diffuse fatty infiltration of the liver. Normal portal vein and splenic vein. Pancreas appears normal. No evidence of pancreatic head mass. Normal spleen. Normal caliber abdominal aorta. A drenal glands are normal. Normal renal parenchymal enhancement. No hydronephrosis. Fluid distended gallbladder with small gallstone in the dependent portion of the gallbladder. No gall bladder wall thickening or pericholecystic fluid. Common bile duct appears normal today measuring 5 m m at the pancreatic head. No evidence of choledocholithiasis. Intrahepatic biliary ductal dilatation appears less pronounced today. Small esophageal hernia. Impression: 1. Small gallstone in the dependent portion of the gallbladder. No gallbladder wall thickening or pe richolecystic fluid. No evidence of acute cholecystitis. 2. Common bile duct has a normal appearance today measuring 5 mm at the pancreatic head. No choledoc holithiasis. 3. Previously described intrahepatic biliary ductal dilatation appears improved or less prominent on today's study 4. No evidence of pancreatic head mass. 5. Small esophageal hiatal hernia. 6. Hepatomegaly with diffuse fatty filtration of the liver.
[2023-09-02] MEDS: ketorolac 30 mg/mL INJ IVP ×2 (01:51→08:52)
[2023-09-02] MEDS: piperacillin-tazobactam 3.375 GM in sodium chloride 0.9% (plus) 50 ML IV (03:06)
[2023-09-02 04:41] VITALS: BP 112/70; PULSE 70; RESP 16; TEMP 37; O2SAT 99
[2023-09-02 04:53] LABS: Basophils % 0.6 %; Eosinophils # 0.2 10^3/uL (0.0-0.8); Eosinophils % 3.1 %; Hematocrit 35.6 % (36-47); Lymphocytes # 2.8 10^3/uL (0.8-4.8); Lymphocytes % 39.7 %; Mean Corpuscular HGB Conc 31.7 g/dL (30-55); Mean Platelet Volume 10.8 fL (7.4-10.4); Monocytes # 0.5 10^3/uL (0.2-0.9); Monocytes % 7.4 %; Neutrophils # 3.49 10^3/uL (1.8-7.7); Neutrophils % 48.6 %; Nucleated Red Blood Cells % 0 %; Platelet Count 244 10^3/cmm (157-399); Red Blood Count 4.19 10^6/uL (3.85-5.65); Red Cell Distribution Width 14.5 % (12.1-15.1); White Blood Count 7.16 10^3/uL (3.29-11.43)
[2023-09-02 05:10] LABS: Alanine Aminotransferase 268 U/L (0-33); Albumin Level 3.5 g/dL (3.5-5.2); Alkaline Phosphatase 130 U/L (35-105); Anion Gap 13.8 (5-19); Aspartate Amino Transferase 95 U/L (0-32); Blood Urea Nitrogen 12 mg/dL (6-20); Calcium 8.4 mg/dL (8.5-10.5); Carbon Dioxide 23 mmol/L (22-29); Chloride 109 mmol/L (98-107); Creatinine Clr Calc Pharmacy 151.8508; Globulin 2.6 g/dL (1.3-4.6); Glomerular Filtration Rate 88.1 mL/min (90-130); Glucose 93 mg/dL (65-115); Osmolality Calculated 293 mOsm/kg (285-295); Potassium 3.8 mmol/L (3.5-5.1); Sodium 142 mmol/L (136-145); Total Bilirubin 0.4 mg/dL (0.15-1.2); Total Protein 6.1 g/dL (6.6-8.7)
[2023-09-02 08:00] VITALS: BP 125/77; PULSE 75; RESP 16; TEMP 36.6; O2SAT 97
--- NOTE | 2023-09-02 09:21 | PM.DCS ---
Discharge Providers Date of Admission: 08/31/23 22:32 Date of Discharge: September 02, 2023 Attending Provider at Admission: Earl Vaz MD Attending Provider at Discharge: Earl Vaz MD Primary Care Provider: PAUL Husain Diagnoses at Discharge Discharge Diagnosis (1) Abdominal pain: Status: Acute (2) Transaminitis: Status: Acute (3) Choledocholithiasis: Status: Acute Reason for Visit Reason for Visit: abd and back pain Hospital Course Hospital Course Is a 23-year-old female who presented to the emergency department complaining of right upper quadrant abdominal pain. White count was elevated, CT scan of the abdomen and pelvis was done and show evidence of distended gallbladder with minimal wall thickening and a distended common bile duct up to the level of the neck of the pancreas. Due to this finding patient was admitted for IV antibiotics and to obtain an MRCP for verification of choledocholithiasis. MRCP was done on hospital day 1 and it was negative for choledocholithiasis, it did show a resolution of the intra and extrahepatic biliary ductal dilation, there was only 1 a stone in the dependent portion of the gallbladder. No gallbladder wall thickening. This indicates that maybe there was a small stone that passed through the duct causing the initial dilation. During hospital day 1 and hospital day 2 patient pain resolved, she tolerated diet, liver enzymes significantly trended down and bilirubin normalized. Patient will be discharged home on p.o. antibiotics and she will meet with me in the clinic to schedule an elective cholecystectomy for symptomatic cholelithiasis. Physical Exam Narrative: General : Patient is well developed , no acute distress, oriented x3 Head : Normal cephalic, a-traumatic. Nose : Mucous membranes are without erythema. Lungs : Equal chest rise bilaterally, no use of accessory muscles, trachea is midline. CV : Rate and rhythm are normal. Abdomen : Soft, ND, NT, no g/r/m Extremities : No edema. Upper extremities are normal bilaterally. Back : non-tender to palpation, no CVA tenderness. Discharge Data Studies Completed and Pending Completed Studies During Hospitalization Category Date Time Status CT abdomen pelvis w con* [id number] Stat Cat Scan 08/31/23 17:32 Completed MR MRCP [id number] Stat MRI 09/01/23 09:30 Completed US gall bladder [id number] Stat Ultrasound 08/31/23 15:22 Completed Pending at discharge Category Date Time Status BMP [Basic Metabolic Panel] AM LABS Lab 09/03/23 04:00 Ordered CBC Auto Diff [Complete Blood Count w/Auto] AM LABS Lab 09/03/23 04:00 Ordered LFT [Liver Panel] AM LABS Lab 09/03/23 04:00 Ordered Radiology Impressions Gallbladder Ultrasound 08/31/23 15:22 IMPRESSION: Slightly thickened gallbladder wall with a mildly dilated common duct. No evidence of stones however. Abdomen/Pelvis CT 08/31/23 17:32 IMPRESSION: Biliary ductal dilatation of unclear etiology. MRCP recommended for further characterization. Laboratory Results WBC 7.16 10^3/uL (3.29-11.43) 09/02/23 04:20 RBC 4.19 10^6/uL (3.85-5.65) 09/02/23 04:20 Hgb 11.30 g/dL (11.27-16.99) 09/02/23 04:20 Hct 35.6 % (36-47) L 09/02/23 04:20 MCV 85.0 fl (85-98) 09/02/23 04:20 MCH 27.0 pg (27-33) 09/02/23 04:20 MCHC 31.7 g/dL (30-55) 09/02/23 04:20 RDW 14.5 % (12.1-15.1) 09/02/23 04:20 Plt Count 244 10^3/cmm (157-399) 09/02/23 04:20 MPV 10.8 fL (7.4-10.4) H 09/02/23 04:20 Neut % (Auto) 48.6 % 09/02/23 04:20 Lymph % (Auto) 39.7 % 09/02/23 04:20 [place] % (Auto) 7.4 % 09/02/23 04:20 Eos % (Auto) 3.1 % 09/02/23 04:20 Baso % (Auto) 0.6 % 09/02/23 04:20 Neut # (Auto) 3.49 10^3/uL (1.8-7.7) 09/02/23 04:20 Lymph # (Auto) 2.8 10^3/uL (0.8-4.8) 09/02/23 04:20 [place] # (Auto) 0.5 10^3/uL (0.2-0.9) 09/02/23 04:20 Eos # (Auto) 0.2 10^3/uL (0.0-0.8) 09/02/23 04:20 Baso # (Auto) 0.0 10^3/uL (0.0-0.1) 09/02/23 04:20 Nucleated RBC % (auto) 0 % 09/02/23 04:20 Nucleated RBCs # 0.0 /100WBC 09/02/23 04:20 Sodium 142 mmol/L (136-145) 09/02/23 04:20 Potassium 3.8 mmol/L (3.5-5.1) 09/02/23 04:20 Chloride 109 mmol/L (98-107) H 09/02/23 04:20 Carbon Dioxide 23 mmol/L (22-29) 09/02/23 04:20 Anion Gap 13.8 (5-19) 09/02/23 04:20 BUN 12 mg/dL (6-20) 09/02/23 04:20 Creatinine 0.8 mg/dL (0.5-0.9) 09/02/23 04:20 GFR Calculation 88.1 mL/min (90-130) L 09/02/23 04:20 Glucose 93 mg/dL (65-115) 09/02/23 04:20 Calculated Osmolality 293 mOsm/kg (285-295) 09/02/23 04:20 Calcium 8.4 mg/dL (8.5-10.5) L 09/02/23 04:20 Total Bilirubin 0.4 mg/dL (0.15-1.2) 09/02/23 04:20 Direct Bilirubin 0.20 mg/dL (0.00-0.30) 09/02/23 04:20 AST 95 U/L (0-32) H 09/02/23 04:20 ALT 268 U/L (0-33) H 09/02/23 04:20 Alkaline Phosphatase 130 U/L (35-105) H 09/02/23 04:20 Total Protein 6.1 g/dL (6.6-8.7) L 09/02/23 04:20 Albumin 3.5 g/dL (3.5-5.2) 09/02/23 04:20 Globulin 2.6 g/dL (1.3-4.6) 09/02/23 04:20 Lipase 31 U/L (13-60) 08/31/23 14:13 HCG, Qual Negative (Negative) 08/31/23 14:13 Urine Color [place] (Yellow) 08/31/23 17:10 Urine Appearance Clear (CLEAR) 08/31/23 17:10 Urine pH 8 (5-7) H 08/31/23 17:10 Ur Specific [place] 1.015 (1.005-1.030) 08/31/23 17:10 Urine Protein Neg (Negative) 08/31/23 17:10 Urine Glucose (UA) Norm (Normal) 08/31/23 17:10 Urine Ketones Negative (Negative) 08/31/23 17:10 Urine Blood Neg (Negative) 08/31/23 17:10 Urine Nitrate Negative (Negative) 08/31/23 17:10 Urine Bilirubin Neg (Negative) 08/31/23 17:10 Prot Sulfosalicylic Acd Negative (Negative) 08/31/23 17:10 Urine Urobilinogen Norm mg/dL (Negative) 08/31/23 17:10 Ur Leukocyte Esterase Negative (Negative) 08/31/23 17:10 Vitals Last Vital Signs Temp 98.6 F 09/02/23 04:41 Pulse 70 09/02/23 04:41 Resp 16 09/02/23 04:41 BP 112/70 09/02/23 04:41 Pulse Ox 99 09/02/23 04:41 O2 Del Method Room Air 09/01/23 16:38 Discharge Plan Discharge Patient Disposition: Home Condition: Stable Prescriptions: New amoxicillin-pot clavulanate 875-125 mg tablet 1 tab PO Q12H Qty: 10 0RF meloxicam 7.5 mg tablet 7.5 mg PO DAILY 5 Days Qty: 5 0RF Continued prenat.vits,tammie,[id number] Tablet 1 tab PO DAILY Discontinued ibuprofen 800 mg Tablet 800 mg PO TID Qty: 45 0RF Discharge Orders: Discharge Order (Routine); Ordered 09/02/23 Ordered By: Earl Vaz Referrals: Bridgett Armendariz FNP [Primary Care Provider] - Earl Vaz MD [Physician] - (1 week) Discharge Diet: Advance as tolerated Discharge Activity: Resume usual activity Patient Instructions: Opioid Safety Activity Restrictions/Additional Instructions: Continued with a low-fat diet. Please follow-up in my clinic in 1 week to discuss the possibility of surgery. Discharge Attestations Time Spent in Discharge Care*: less than 30 min Quality Metrics Clinical Quality Measures [ No reported AMI, CVA or VTE this stay] Coding Level of Care Code Acute Code for Chg [facility]wd Diagnoses Abdominal pain R10.9 Transaminitis R74.01 Choledocholithiasis K80.50
[2023-09-02 12:00] VITALS: BP 126/82; PULSE 75; RESP 16; TEMP 36.9; O2SAT 98
[2023-09-02 13:42] VITALS: BP 126/82; PULSE 75; RESP 16; TEMP 36.9; O2SAT 98
== END 2023-09-02 12:40 | disposition home or self-care (01) | DRG 446 ==
LOC: ER 18:39 → MEDSURG 22:33
PROVIDERS: Emergency Medicine; Admitting Provider Surgery; Emergency Provider Family Medicine; PCP Nurse Practitioner; Visit Provider Surgery
DX: K80.20 Calculus of gallbladder without cholecystitis without obstruction (principal); K83.8 Other specified diseases of biliary tract
CPT/HCPCS: 36415; 74177; 74181; 76705; 80048; 80053; 80076; 81003; 83690; 84703; 85025; 96374; 96375; 99285; J1885; J2405; J2543; J7030; J7120; Q9967

== ENCOUNTER → 2023-09-08 09:31 | Outpatient (BNVA) | payer OTHER, MEDICAID, SELFPAY | PROVIDERS: Visit Provider Surgery | DX: K80.20 Calculus of gallbladder without cholecystitis without obstruction | CPT/HCPCS: 99214 ==

== ENCOUNTER 2023-09-13 22:56 | Observation (INO) | payer OTHER, MEDICAID, SELFPAY ==
[2023-09-13 23:08] VITALS: BP 145/83; PULSE 74; RESP 16; TEMP 36.7; O2SAT 99; BMI 39.9
[2023-09-14] VITALS (23 sets, daily range): BP systolic 122–151; BP diastolic 72–99; PULSE 56–115; RESP 16–22; TEMP 36.2–37.3; O2SAT 90–100; BMI 40.7
[2023-09-14 00:40] LABS: Bilirubin Urine Neg (Negative); Blood Urine Neg (Negative); Glucose Urine UA Norm (Normal); Ketones Urine 1+ (Negative); Leukocyte Esterase Urine Trace (Negative); Nitrate Urine Negative (Negative); Protein Urine Neg (Negative); Specific Gravity, Urine 1.015 (1.005-1.030); Sulfosalicylic Acid Urine Negative (Negative); Urine Appearance Clear (CLEAR); Urine Color Dark Yellow (Yellow); Urobilinogen Urine Neg (Negative); pH Urine 8 (5-7)
[2023-09-14 00:41] LABS: Add Urine Culture? No; Add Urine Microscopic? YES; Amorphous Sediment Urine 1+ /hpf; Bacteria Urine 1+ /hpf; Mucus Urine 2+ /hpf; Squamous Epithelial Cell Urine 0-4 /hpf (0-5); WBC Urine 0-4 /hpf (0-5)
[2023-09-14 00:52] LABS: Basophils # 0.1 10^3/uL (0.0-0.1); Basophils % 0.3 %; Eosinophils % 0.2 %; Hematocrit 41.2 % (36-47); Lymphocytes # 1.4 10^3/uL (0.8-4.8); Lymphocytes % 7.6 %; Mean Corpuscular HGB Conc 32.3 g/dL (30-55); Mean Corpuscular Hemoglobin 27.5 pg (27-33); Mean Corpuscular Volume 85.3 fl (85-98); Mean Platelet Volume 10.6 fL (7.4-10.4); Monocytes # 0.8 10^3/uL (0.2-0.9); Monocytes % 4.4 %; Neutrophils # 15.49 10^3/uL (1.8-7.7); Neutrophils % 86.9 %; Nucleated Red Blood Cells % 0 %; Platelet Count 288 10^3/cmm (157-399); Red Blood Count 4.83 10^6/uL (3.85-5.65); Red Cell Distribution Width 14.6 % (12.1-15.1); White Blood Count 17.82 10^3/uL (3.29-11.43)
[2023-09-14 01:14] LABS: Alanine Aminotransferase 55 U/L (0-33); Albumin Level 4.3 g/dL (3.5-5.2); Alkaline Phosphatase 120 U/L (35-105); Anion Gap 15.5 (5-19); Aspartate Amino Transferase 59 U/L (0-32); Blood Urea Nitrogen 10 mg/dL (6-20); Calcium 9.9 mg/dL (8.5-10.5); Carbon Dioxide 24 mmol/L (22-29); Chloride 102 mmol/L (98-107); Creatinine Clr Calc Pharmacy 151.8508; Globulin 3.7 g/dL (1.3-4.6); Glomerular Filtration Rate 88.1 mL/min (90-130); Glucose 108 mg/dL (65-115); Lipase 42 U/L (13-60); Osmolality Calculated 284 mOsm/kg (285-295); Potassium 4.5 mmol/L (3.5-5.1); Sodium 137 mmol/L (136-145); Total Bilirubin 0.7 mg/dL (0.15-1.2)
[2023-09-14 01:15] LABS: HCG, Serum Qual Negative (Negative)
--- NOTE | 2023-09-14 01:25 | W.ED.ABDPA2 ---
HPI - Abdominal Pain General: Chief Complaint: Abdominal Pain Stated Complaint: upper abd pain Time Seen by Provider: 09/14/23 00:26 History of Present Illness: 23-year-old female presents emergency department with complaints of right upper quadrant abdominal pain she states that her pain is a 8 out of 10 at present. She does have associated nausea without vomiting. She states she is initially scheduled to have her gallbladder removed on October 03, 2023. She states she has had an MRCP on September 01, 2023 she states she is also had a CT of her abdomen pelvis on 1227 and a gallbladder ultrasound on 08/31/2023. Associated Symptoms: Reports nausea and vomiting Review of Systems General: Reports: 10 or more systems reviewed and unremarkable except in HPI and below GI: Reports: abdominal pain, nausea and vomiting PFSH ED PFSH: Family History Mother Hypertension Grandmother Hypertension Cancer paternal Father Multiple sclerosis Grandfather Diabetes Social History Smoking and tobacco/nicotine status: never used tobacco/nicotine Alcohol intake: never Substance/Drug Use: never Adopted: No Caregiver/support person: No Lives independently: No Marital status: Single service: No Current occupational status: unemployed Sexually active: Yes Do you think of yourself as: Straight/Heterosexual Current gender identity: Female Physical Exam Narrative: EXAM NARRATIVE: Constitutional: the patient appears well nourished and of normal development. Vital signs as documented. No acute distress at present. Alert and oriented-to person, place, time and situation. Head, eyes, ears, nose, mouth, throat: Normocephalic, atraumatic. Pupils-equal, round, reactive to light. No scleral icterus. Normal-appearing external ears. Normal appearing nasal turbinates, no drainage. No obvious oral lesions, posterior oropharynx without erythema or exudates. Neck: Supple, trachea is midline, no lymphadenopathy, no jugular venous distension, thyromegaly, or carotid bruits. Carotid upstrokes are brisk bilaterally. Lungs: clear to auscultation to all lung campos. Symmetrical rise and fall of chest, no obvious signs of increased work of breathing at present. Cardiac: Regular rate and rhythm, positive S1, S2. No murmurs, rubs or gallops that I can appreciate Abdomen: Soft, right upper quadrant tender to palpation, normal active bowel sounds to all quadrants. No palpable masses, no organomegaly and abdominal bruits. Extremities: 2+ pulses in the upper extremities that are equal bilaterally, 2+ pulses in the lower extremities that are equal bilaterally. Non-edematous. Moves all extremities well, sensation to all extremities are noted. Skin: Warm, dry, intact. Course Vital Signs: Vital signs: Vital Signs Temperature 98.0 F 09/13/23 23:08 Pulse Rate 64 09/14/23 02:18 Respiratory Rate 16 09/13/23 23:08 Blood Pressure 145/83 09/13/23 23:08 Pulse Oximetry 99 09/14/23 02:18 Oxygen Delivery Me thod Room Air 09/14/23 02:18 MDM - Abdominal Pain Medical Decision Making Physical exam completed and documented, I will obtain laboratory evaluation to include a CBC, CMP, lipase, urinalysis, and an ultrasound of the right upper quadrant to evaluate for acute cholecystitis, I will provide the patient pain medication for pain relief and contact the general surgeon on-call. Medical Records I reviewed the patient's medical records. Lab Data I reviewed the patient's lab results. 09/14/23 00:46 09/14/23 00:46 Labs/Radiology: Radiology Impressions Gallbladder Ultrasound 09/14/23 01:27 IMPRESSION: 1. Cholelithiasis with gallbladder wall thickening and positive Dai's sign. Cholecystitis not excluded. No ductal dilatation. 2. Mild fatty infiltration of the liver Laboratory Results WBC 17.82 10^3/uL (3.29-11.43) H 09/14/23 00:46 RBC 4.83 10^6/uL (3.85-5.65) 09/14/23 00:46 Hgb 13.30 g/dL (11.27-16.99) 09/14/23 00:46 Hct 41.2 % (36-47) 09/14/23 00:46 MCV 85.3 fl (85-98) 09/14/23 00:46 MCH 27.5 pg (27-33) 09/14/23 00:46 MCHC 32.3 g/dL (30-55) 09/14/23 00:46 RDW 14.6 % (12.1-15.1) 09/14/23 00:46 Plt Count 288 10^3/cmm (157-399) 09/14/23 00:46 MPV 10.6 fL (7.4-10.4) H 09/14/23 00:46 Neut % (Auto) 86.9 % 09/14/23 00:46 Lymph % (Auto) 7.6 % 09/14/23 00:46 [place] % (Auto) 4.4 % 09/14/23 00:46 Eos % (Auto) 0.2 % 09/14/23 00:46 Baso % (Auto) 0.3 % 09/14/23 00:46 Neut # (Auto) 15.49 10^3/uL (1.8-7.7) H 09/14/23 00:46 Lymph # (Auto) 1.4 10^3/uL (0.8-4.8) 09/14/23 00:46 [place] # (Auto) 0.8 10^3/uL (0.2-0.9) 09/14/23 00:46 Eos # (Auto) 0.0 10^3/uL (0.0-0.8) 09/14/23 00:46 Baso # (Auto) 0.1 10^3/uL (0.0-0.1) 09/14/23 00:46 Nucleated RBC % (auto) 0 % 09/14/23 00:46 Nucleated RBCs # 0.0 /100WBC 09/14/23 00:46 Sodium 137 mmol/L (136-145) 09/14/23 00:46 Potassium 4.5 mmol/L (3.5-5.1) 09/14/23 00:46 Chloride 102 mmol/L (98-107) 09/14/23 00:46 Carbon Dioxide 24 mmol/L (22-29) 09/14/23 00:46 Anion Gap 15.5 (5-19) 09/14/23 00:46 BUN 10 mg/dL (6-20) 09/14/23 00:46 Creatinine 0.8 mg/dL (0.5-0.9) 09/14/23 00:46 GFR Calculation 88.1 mL/min (90-130) L 09/14/23 00:46 Glucose 108 mg/dL (65-115) 09/14/23 00:46 Calculated Osmolality 284 mOsm/kg (285-295) L 09/14/23 00:46 Calcium 9.9 mg/dL (8.5-10.5) 09/14/23 00:46 Total Bilirubin 0.7 mg/dL (0.15-1.2) 09/14/23 00:46 AST 59 U/L (0-32) H 09/14/23 00:46 ALT 55 U/L (0-33) H 09/14/23 00:46 Alkaline Phosphatase 120 U/L (35-105) H 09/14/23 00:46 Total Protein 8.0 g/dL (6.6-8.7) 09/14/23 00:46 Albumin 4.3 g/dL (3.5-5.2) 09/14/23 00:46 Globulin 3.7 g/dL (1.3-4.6) 09/14/23 00:46 Lipase 42 U/L (13-60) 09/14/23 00:46 HCG, Qual Negative (Negative) 09/14/23 00:46 Urine Color Dark yellow (Yellow) 09/14/23 00:26 Urine Appearance Clear (CLEAR) 09/14/23 00:26 Urine pH 8 (5-7) H 09/14/23 00:26 Ur Specific [place] 1.015 (1.005-1.030) 09/14/23 00:26 Urine Protein Neg (Negative) 09/14/23 00:26 Urine Glucose (UA) Norm (Normal) 09/14/23 00: Urine Ketones 1+ (Negative) H 09/14/23 00:26 Urine Blood Neg (Negative) 09/14/23 00: Urine Nitrate Negative (Negative) 09/14/23 00: Urine Bilirubin Neg (Negative) 09/14/23 00:26 Prot Sulfosalicylic Acd Negative (Negative) 09/14/23 00: Urine Urobilinogen Neg mg/dL (Negative) 09/14/23 00:26 Ur Leukocyte Esterase Trace (Negative) H 09/14/23 00:26 Urine RBC None /hpf (0-2) 09/14/23 00:26 Urine WBC 0-4 /hpf (0-5) H 09/14/23 00:26 Ur Squamous Epith Cells 0-4 /hpf (0-5) H 09/14/23 00:26 Amorphous Sediment 1+ /hpf 09/14/23 00:26 Urine Bacteria 1+ /hpf (NONE) H 09/14/23 00:26 Urine Mucus 2+ /hpf 09/14/23 00:26 All radiology interpretation(s) finalized by discharge Discharge Plan Discharge Patient Disposition: Placed in Observation Clinical Impression: Symptomatic cholelithiasis Condition: Stable Prescriptions: No Action prenat.vits,tammie,[id number] Tablet 1 tab PO DAILY amoxicillin-pot clavulanate 875-125 mg tablet 1 tab PO Q12H Qty: 10 0RF Coding Level of Care Code ED [employer]
--- NOTE | 2023-09-14 01:27 | USR_ITS ---
PROCEDURE INFORMATION: Exam: US Abdomen, Limited; Right Upper Quadrant Exam date and time: 09/14/2023 2:22 AM Age: 23 years old Clinical indication: Abdominal pain; Other: Ruq; Additional info: Right upper quadrant abdominal pain TECHNIQUE: Imaging protocol: Real time ultrasound of the abdomen with image documentation. Limited exam focused on the right upper quadrant. COMPARISON: US gall bladder [id number] 08/31/2023 3:43 PM FINDINGS: Liver: Mild fatty infiltration of the liver Gallbladder: Cholelithiasis. Gallbladder wall thickening. Positive Dai's sign during scanning. Biliary ducts: CBD measures 4.7 mm. Pancreas: Visualized pancreas is unremarkable. Right kidney: Normal. No mass. No hydronephrosis. US/US gall bladder [id number] IMPRESSION: 1. Cholelithiasis with gallbladder wall thickening and positive Dai's sign. Cholecystitis not excluded. No ductal dilatation. 2. Mild fatty infiltration of the liver
[2023-09-14] MEDS: ketorolac 30 mg/mL INJ IVP (01:38)
[2023-09-14] MEDS: ondansetron 2 mg/ML SDV 2 mL 4 MG IVP ×2 (01:52→13:39)
[2023-09-14] MEDS: piperacillin-tazobactam 3.375 GM in sodium chloride 0.9% (plus) 50 ML IV ×2 (04:21→15:10)
[2023-09-14] MEDS: lactated ringers 1,000 ML 100 ML IV ×2 (04:43→19:55)
[2023-09-14] MEDS: morphine 4 mg/mL SDV 1 mL IVP (08:55)
--- NOTE | 2023-09-14 10:08 | P.HP_ITS ---
Providers/Chief Complaint 2 Admitting Physician: Nicolas Pace DO Chief Complaint: upper abd pain History of Present Illness Leilani Nagel is a 23 year old female comes to the hospital with 1 day history of severe right upper quadrant abdominal pain radiating to her back along with nausea and vomiting. She reports that she has had the symptoms intermittently over the last 6 months. She was scheduled for elective cholecystectomy. She denies any hematemesis. Eating makes her pain worse. Nothing makes her pain better. She denies any diarrhea, constipation, hematochezia and/or melena. Gallbladder ultrasound showed acute calculus cholecystitis. Review of Systems 2 General: Reports: 10 or more systems reviewed and unremarkable except in HPI and below Medications/Allergies Home Medications Medication Instructions Recorded Confirmed Last Taken Type magnesium 250 mg tablet 250 mg PO DAILY 09/14/23 09/14/23 09/13/23 History vit no.95-ferrous 1 tab PO DAILY 09/14/23 09/14/23 09/13/23 History fumarate 28 mg-folic acid 800 mcg tablet () Allergies Allergy/AdvReac Type Severity Reaction Status Date / Time No Known Allergies Allergy Verified 09/14/23 04:51 PFSH Acute 2 PFSH: Family History Mother Hypertension Grandmother Hypertension Cancer paternal Father Multiple sclerosis Grandfather Diabetes Social History Smoking and tobacco/nicotine status: never used tobacco/nicotine Alcohol intake: never Substance/Drug Use: never Adopted: No Caregiver/support person: No Lives independently: No Marital status: Single service: No Current occupational status: unemployed Sexually active: Yes Do you think of yourself as: Straight/Heterosexual Current gender identity: Female Female Reproductive History: Date of last menstrual period: 08/24/23 Vitals/I&O/Wt Last Vital Signs Temp 98.9 F 09/14/23 07:15 Pulse 62 09/14/23 07:15 Resp 16 09/14/23 08:55 BP 149/74 09/14/23 07:15 Pulse Ox 90 09/14/23 07:15 O2 Del Method Room Air 09/14/23 07:15 09/13/23 09/14/23 09/14/23 22:59 06:59 14:59 Intake Total 50 / 50 Balance 50 / 50 Weight last 48 hrs Weight 275 lb 12.8 oz Weight 275 lb 12.8 oz Weight 270 lb Physical Exam 2 Narrative: General : Patient is well developed , no acute distress, oriented x3 Head : Normal cephalic, a-traumatic. Ears : Pinnae and external canal are normal. Hearing is normal. Eyes : PERRLA, Sclera and injection are normal. No conjunctival discharge. Nose : Mucous membranes are without erythema. Throat : buccal mucosa is normal, gums are without significant recession or hypertrophy. Lungs : Equal chest rise bilaterally, no use of accessory muscles, trachea is midline. Cor : Rate and rhythm are normal. Abdomen : Soft, ND, right upper quadrant tenderness, negative Dai's, no g/r/m Extremities : No edema, no cyanosis or clubbing, dorsalis pedis pulses are present bilaterally, non-tender to palpation of calves. Upper extremities are normal bilaterally. Back : non-tender to palpation, no CVA tenderness. Neuro : CN II - XII intact, Upper and lower extremities have equal and full strength Data 09/14/23 00:46 09/14/23 00:46 A&P Assessment and plan (1) Acute calculous cholecystitis: Plan Laparoscopic cholecystectomy The risks and benefits of the procedure, including but not limited to, bleeding, infection, scar, numbness, pain, damage to surrounding structures, damage to common bile duct requiring additional surgery, conversion to an open procedure, were explained to the patient. He is understanding of the risks and wishes to proceed. Attestations 2 Medical Necessity Statement*: Patient requires at least 1 more night in hospital for antibiotics and recovery after laparoscopic cholecystectomy for acute calculus cholecystitis Coding Level of Care Code Acute Code for [facility] Diagnoses Acute calculous cholecystitis K80.00
[2023-09-14] MEDS: scopolamine 1.5 Patch 1 PATCH TRANSDERMA (10:42)
[2023-09-14] MEDS: sodium chloride 0.9% 1,000 ML 30 ML IV (10:42)
[2023-09-14] MEDS: ceFAZolin 2,000 MG in sodium chloride 0.9% (plus) 50 ML 100 MG IV (10:51)
[2023-09-14] MEDS: ceFAZolin 1,000 mg SDV 1000 MG IVP (10:51)
[2023-09-14] MEDS: lidocaine-epi 2% 20 mL INJ INJECTION (11:19)
--- NOTE | 2023-09-14 11:29 | P.OP_ITS ---
Operative Report Date of procedure: September 14, 2023 Surgeon: Nicolas Pace DO Brief History: Very pleasant 23-year-old female who presented to the hospital with acute calculus cholecystitis. Laparoscopic cholecystectomy is indicated. The risk benefits were explained and documented. Procedure: Preoperative diagnosis: Acute calculus cholecystitis Postoperative diagnosis: Same Procedure performed: Laparoscopic cholecystectomy Surgeon: Dr. Nicolas Pace DO Estimated blood loss: 5 mL Specimens: Gallbladder to pathology Complications: None apparent Description of procedure: Patient was wheeled into the operative room and placed on the OR table in a supine position. Abdomen was inspected prepped and draped in usual sterile fashion. Time-out was performed and all present were in agreement. A 15 blade scalp was used to make a stab incision in the left upper quadrant and intra- abdominal insufflation was achieved using a Veress needle. After localizing the tissue incisions were made and a 5 millimeter trocar was placed into the umbilicus as well as 2 in the right upper quadrant. A 12 millimeter trocar was placed in the epigastrium. Gallbladder was grasped and elevated. The triangle of [place] was carefully dissected using blunt dissection and electrocautery until the triangle of [place] clearly identified. The cystic duct was clipped proximally and double clipped distally. The duct was then ligated proximally. The cystic artery was doubly clipped and ligated. The gallbladder was then removed from the liver bed using electrocautery. The gallbladder was removed from the abdomen using an Endo-Catch bag through the epigastric incision. The liver bed was inspected and no bleeding was seen. The abdomen was irrigated and suctioned. All ports removed. Skin was washed and dried. Incisions were closed with 4-0 Monocryl in a subcuticular interrupted fashion. Skin glue was applied. Patient tolerated the procedure well.
[2023-09-14 13:20] LABS: Magnesium 1.8 mg/dL (1.7-2.3)
--- NOTE | 2023-09-14 14:58 | ANE.PACU2 ---
Inpatient post-anesthesia follow up: Airway intact: Yes Vital signs: Temperature 97.4 F Pulse Rate 57 Respiratory Rate 20 Blood Pressure 146/95 Pulse Oximetry 97 Oxygen Delivery Me thod Room Air Oxygen Flow Rate Fraction of Inspir ed Oxygen Hydration adequate: Yes Nausea and vomiting: No Pain level: 4 Mental status: Baseline
[2023-09-14] MEDS: HYDROcodone-acetaminophen 7.5-325 mg Tablet 1 TAB PO ×2 (15:10→22:50)
[2023-09-15 03:35] VITALS: BP 119/71; PULSE 94; RESP 16; TEMP 36.8; O2SAT 96
[2023-09-15] MEDS: piperacillin-tazobactam 3.375 GM in sodium chloride 0.9% (plus) 50 ML IV ×2 (03:54→10:58)
[2023-09-15] MEDS: lactated ringers 1,000 ML 100 ML IV (05:46)
[2023-09-15 07:07] LABS: Basophils % 0.1 %; Eosinophils # 0.1 10^3/uL (0.0-0.8); Eosinophils % 0.4 %; Hematocrit 34.9 % (36-47); Lymphocytes # 2.4 10^3/uL (0.8-4.8); Lymphocytes % 15.9 %; Mean Corpuscular HGB Conc 31.8 g/dL (30-55); Mean Corpuscular Hemoglobin 27.6 pg (27-33); Mean Corpuscular Volume 86.8 fl (85-98); Mean Platelet Volume 11.4 fL (7.4-10.4); Monocytes # 0.9 10^3/uL (0.2-0.9); Monocytes % 6.2 %; Neutrophils # 11.37 10^3/uL (1.8-7.7); Neutrophils % 76.7 %; Nucleated Red Blood Cells % 0 %; Platelet Count 257 10^3/cmm (157-399); Red Blood Count 4.02 10^6/uL (3.85-5.65); White Blood Count 14.84 10^3/uL (3.29-11.43)
[2023-09-15 07:31] LABS: Alanine Aminotransferase 52 U/L (0-33); Albumin Level 3.6 g/dL (3.5-5.2); Alkaline Phosphatase 99 U/L (35-105); Aspartate Amino Transferase 41 U/L (0-32); Blood Urea Nitrogen 9 mg/dL (6-20); Calcium 8.9 mg/dL (8.5-10.5); Carbon Dioxide 22 mmol/L (22-29); Chloride 106 mmol/L (98-107); Globulin 2.9 g/dL (1.3-4.6); Glomerular Filtration Rate 102.8 mL/min (90-130); Glucose 113 mg/dL (65-115); Osmolality Calculated 285 mOsm/kg (285-295); Sodium 138 mmol/L (136-145); Total Bilirubin 0.4 mg/dL (0.15-1.2); Total Protein 6.5 g/dL (6.6-8.7)
[2023-09-15 07:35] VITALS: BP 126/77; PULSE 81; RESP 16; TEMP 37.1; O2SAT 97
--- NOTE | 2023-09-15 09:32 | PC.CHAP ---
Pastoral Care Encounter/Spiritual Assessment Type of Contact [] Declined i o psychologist visit [] Patient/Family/Request visit [] Outpatient visit [] Follow-up visit [] Physician referral [] Code/Alert [x] Routine visit [] Staff referral [] Actively dying [] Patient sleeping [x] Family support [] [] Out of room [] Palliative care [] [] Receiving care in room [] Pre-surgical visit [] Trauma [] Long length of stay [] ICU visit [] Other: Relational/Emotional Strength [x] Patient feels connected with others/family/visitors/staff [] Distress [] Loneliness/isolation [] Abandonment Spirituality of Patient [x] Person of Melissa [x] Attends Congregation of their Melissa [x] Believes in Prayer [x] Reads Bible or Shinto materials [] There are Spiritual issues to be addressed [employer] Worker Interventions [x] Prayer [x] Active listening [] Non-anxious presence [x] Spiritual/emotional support [] Crisis/trauma care [] Spiritual counseling [] Bereavement support [] Provided bereavement packet [] Provided Bible/devotional materials [] Provided toy/stuffed animal, coloring book to patient or family member [] Provided Communion [] Anointing/[place] [] Salvation [x] Completed spiritual assessment [] Other: Impact on Illness or Injury [] Angry [] Fearful [] Anxious [] Often cries [] Exhaustion [] Unable to work [] Unable to attend advent [] Unable to walk/stand [] Unable to read [] Unable to drive [] Unable to eat/drink [] Unable to sleep [] Unable to be with family [] Patient intubated [] Other: Summary Time spent with patient 5 min
[2023-09-15] MEDS: HYDROcodone-acetaminophen 7.5-325 mg Tablet 1 TAB PO (09:43)
[2023-09-15 11:15] VITALS: BP 121/74; PULSE 66; RESP 16; TEMP 36.8; O2SAT 97
--- NOTE | 2023-09-15 12:16 | P.DS_ITS ---
Discharge Providers Date of Admission: 09/14/23 04:20 Date of Discharge: September 15, 2023 Attending Provider at Admission: Nicolas Pace DO Attending Provider at Discharge: Nicolas Pace DO Diagnoses at Discharge Discharge Diagnosis (1) Acute calculous cholecystitis: Status: Resolved Reason for Visit Reason for Visit: upper abd pain Hospital Course Hospital Course Is a very pleasant 23-year-old female who presents to the hospital with acute calculus cholecystitis. She underwent laparoscopic cholecystectomy and was discharged home the next day in good condition. Physical Exam Narrative: General : Patient is well developed , no acute distress, oriented x3 Head : Normal cephalic, a-traumatic. Ears : Pinnae and external canal are normal. Hearing is normal. Eyes : PERRLA, Sclera and injection are normal. No conjunctival discharge. Nose : Mucous membranes are without erythema. Throat : buccal mucosa is normal, gums are without significant recession or hypertrophy. Lungs : Equal chest rise bilaterally, no use of accessory muscles, trachea is midline. Cor : Rate and rhythm are normal. Abdomen : Soft, ND, appropriately tender, no g/r/m Extremities : No edema, no cyanosis or clubbing, dorsalis pedis pulses are present bilaterally, non-tender to palpation of calves. Upper extremities are normal bilaterally. Back : non-tender to palpation, no CVA tenderness. Neuro : CN II - XII intact, Upper and lower extremities have equal and full strength Discharge Data Studies Completed and Pending Completed Studies During Hospitalization Category Date Time Status US gall bladder [id number] Stat Ultrasound 09/14/23 01:27 Completed Pending at discharge Category Date Time Status CBC Auto Diff [Complete Blood Count w/Auto] AM LABS Lab 09/16/23 04:00 Ordered CBC Auto Diff [Complete Blood Count w/Auto] AM LABS Lab 09/17/23 04:00 Ordered CMP [Comprehensive Metabolic Panel] AM LABS Lab 09/16/23 04:00 Ordered CMP [Comprehensive Metabolic Panel] AM LABS Lab 09/17/23 04:00 Ordered Pathology: Surgical [PTH] Routine Pth 09/14/23 11:34 Received Radiology Impressions Gallbladder Ultrasound 09/14/23 01:27 IMPRESSION: 1. Cholelithiasis with gallbladder wall thickening and positive Dai's sign. Cholecystitis not excluded. No ductal dilatation. 2. Mild fatty infiltration of the liver Laboratory Results WBC 14.84 10^3/uL (3.29-11.43) H 09/15/23 05:58 RBC 4.02 10^6/uL (3.85-5.65) 09/15/23 05:58 Hgb 11.10 g/dL (11.27-16.99) L 09/15/23 05:58 Hct 34.9 % (36-47) L 09/15/23 05:58 MCV 86.8 fl (85-98) 09/15/23 05:58 MCH 27.6 pg (27-33) 09/15/23 05:58 MCHC 31.8 g/dL (30-55) 09/15/23 05:58 RDW 15.0 % (12.1-15.1) 09/15/23 05:58 Plt Count 257 10^3/cmm (157-399) 09/15/23 05:58 MPV 11.4 fL (7.4-10.4) H 09/15/23 05:58 Neut % (Auto) 76.7 % 09/15/23 05:58 Lymph % (Auto) 15.9 % 09/15/23 05:58 [place] % (Auto) 6.2 % 09/15/23 05:58 Eos % (Auto) 0.4 % 09/15/23 05:58 Baso % (Auto) 0.1 % 09/15/23 05:58 Neut # (Auto) 11.37 10^3/uL (1.8-7.7) H 09/15/23 05:58 Lymph # (Auto) 2.4 10^3/uL (0.8-4.8) 09/15/23 05:58 [place] # (Auto) 0.9 10^3/uL (0.2-0.9) 09/15/23 05:58 Eos # (Auto) 0.1 10^3/uL (0.0-0.8) 09/15/23 05:58 Baso # (Auto) 0.0 10^3/uL (0.0-0.1) 09/15/23 05:58 Nucleated RBC % (auto) 0 % 09/15/23 05:58 Nucleated RBCs # 0.0 /100WBC 09/15/23 05:58 Sodium 138 mmol/L (136-145) 09/15/23 05:58 Potassium 4.0 mmol/L (3.5-5.1) 09/15/23 05:58 Chloride 106 mmol/L (98-107) 09/15/23 05:58 Carbon Dioxide 22 mmol/L (22-29) 09/15/23 05:58 Anion Gap 14.0 (5-19) 09/15/23 05:58 BUN 9 mg/dL (6-20) 09/15/23 05:58 Creatinine 0.7 mg/dL (0.5-0.9) 09/15/23 05:58 GFR Calculation 102.8 mL/min (90-130) 09/15/23 05:58 Glucose 113 mg/dL (65-115) 09/15/23 05:58 Calculated Osmolality 285 mOsm/kg (285-295) 09/15/23 05:58 Calcium 8.9 mg/dL (8.5-10.5) 09/15/23 05:58 Magnesium 1.8 mg/dL (1.7-2.3) 09/14/23 00:46 Total Bilirubin 0.4 mg/dL (0.15-1.2) 09/15/23 05:58 AST 41 U/L (0-32) H 09/15/23 05:58 ALT 52 U/L (0-33) H 09/15/23 05:58 Alkaline Phosphatase 99 U/L (35-105) 09/15/23 05:58 Total Protein 6.5 g/dL (6.6-8.7) L 09/15/23 05:58 Albumin 3.6 g/dL (3.5-5.2) 09/15/23 05:58 Globulin 2.9 g/dL (1.3-4.6) 09/15/23 05:58 Lipase 42 U/L (13-60) 09/14/23 00:46 HCG, Qual Negative (Negative) 09/14/23 00:46 Urine Color Dark yellow (Yellow) 09/14/23 00:26 Urine Appearance Clear (CLEAR) 09/14/23 00:26 Urine pH 8 (5-7) H 09/14/23 00:26 Ur Specific [place] 1.015 (1.005-1.030) 09/14/23 00:26 Urine Protein Neg (Negative) 09/14/23 00:26 Urine Glucose (UA) Norm (Normal) 09/14/23 00:26 Urine Ketones 1+ (Negative) H 09/14/23 00:26 Urine Blood Neg (Negative) 09/14/23 00:26 Urine Nitrate Negative (Negative) 09/14/23 00:26 Urine Bilirubin Neg (Negative) 09/14/23 00:26 Prot Sulfosalicylic Acd Negative (Negative) 09/14/23 00:26 Urine Urobilinogen Neg mg/dL (Negative) 09/14/23 00:26 Ur Leukocyte Esterase Trace (Negative) H 09/14/23 00:26 Urine RBC None /hpf (0-2) 09/14/23 00:26 Urine WBC 0-4 /hpf (0-5) H 09/14/23 00:26 Ur Squamous Epith Cells 0-4 /hpf (0-5) H 09/14/23 00:26 Amorphous Sediment 1+ /hpf 09/14/23 00:26 Urine Bacteria 1+ /hpf (NONE) H 09/14/23 00:26 Urine Mucus 2+ /hpf 09/14/23 00:26 Procedures Performed Laparoscopic cholecystectomy Vitals Last Vital Signs Temp 98.2 F 09/15/23 11:15 Pulse 66 09/15/23 11:15 Resp 16 09/15/23 11:15 BP 121/74 09/15/23 11:15 Pulse Ox 97 09/15/23 11:15 O2 Del Method Room Air 09/15/23 11:15 Discharge Plan Discharge Patient Disposition: Home Condition: Stable Prescriptions: New hydrocodone-acetaminophen 7.5-325 mg tablet 1 tab PO Q6H PRN (Reason: pain) Qty: 20 0RF docusate sodium [DOK] 100 mg capsule 100 mg PO BID Qty: 14 0RF amoxicillin-pot clavulanate 875-125 mg tablet 1 tab PO BID Qty: 14 0RF Continued magnesium 250 mg Tablet 250 mg PO DAILY 28 mg iron- 800 mcg Tablet 1 tab PO DAILY Discharge Orders: Discharge Order (Routine); Ordered 09/15/23 Ordered By: Nicolas Pace Referrals: Nicolas Pace DO [Physician] - 2 weeks (We have notified your physician's clinic of the need for a follow-up appointment to be scheduled. If you have not heard from them within the next 2 business days, please call them directly. ) Discharge Diet: Advance as tolerated Discharge Activity: Resume usual activity Patient Instructions: Cholelithiasis, Laparoscopic Cholecystectomy (DC), Opioid Safety, Post Anesthesia Care Activity Restrictions/Additional Instructions: Do not soak incisions underwater for 2 weeks. Shower daily. Discharge Attestations Time Spent in Discharge Care*: less than 30 min Quality Metrics Clinical Quality Measures [ No reported AMI, CVA or VTE this stay] Coding Level of Care Code Acute Code for Chg Fwd Diagnoses Acute calculous cholecystitis K80.00
--- NOTE | 2023-09-15 13:50 | PC.NURSE ---
Discharge Note Patient discharged to home via private vehicle accompanied by . Discharge instructions reviewed with patient and/or union contract representative. Mobile pharmacy medications and/or prescriptions provided. Belongings/home medications returned.
[2023-09-15 13:51] VITALS: BP 121/74; PULSE 66; RESP 16; TEMP 36.8; O2SAT 97
== END 2023-09-15 13:52 | disposition home or self-care (01) ==
LOC: ER 09-14 04:14 → MEDSURG 09-14 07:11
PROVIDERS: Nurse Practitioner Family; Admitting Provider Surgery; Emergency Provider Internal Medicine; Visit Provider Surgery
PROC: 0FT44ZZ Resection of Gallbladder, Percutaneous Endoscopic Approach (ICD-10-PCS; CPT 47562; principal; 2023-09-14 14:25)
DX: K80.10 Calculus of gallbladder with chronic cholecystitis without obstruction (principal)
CPT/HCPCS: 47562; 76705; 80053; 81001; 83690; 83735; 84703; 85025; 88304; 96365; 96375; 96376; 99285; G0378; J0690; J1100; J1885; J2250; J2270; J2405; J2543; J2704; J2710; J3010; J3490; J7030; J7120

== ENCOUNTER → 2023-09-27 14:42 | Outpatient (BNVA) | payer OTHER, MEDICAID, SELFPAY | PROVIDERS: Visit Provider Surgery | DX: Z90.49 Acquired absence of other specified parts of digestive tract (principal) | CPT/HCPCS: 99024 ==